=== PATIENT | male | born 1960 | race Caucasian/White ===

== ENCOUNTER 2017-02-24 12:14 | Emergency (ER) | payer OTHER ==
[~2017-02-24] VITALS: Ht 190.5 cm; Wt 108.0 kg
[~2017-02-24 12:14] MED LIST: CONTOUR1 XX; GLUCTAB PO; IBUP800 PO; NEUR600T PO; NOVOLOGMXP SQ; NOVORP2 SQ; RANI150 PO; ROBA750T3 PO; TRAM50TA PO
[2017-02-24 12:17] VITALS: BP 156/96; PULSE 99; RESP 16; TEMP 98.4; O2SAT 97
[2017-02-24 13:01] VITALS: BP 165/93; PULSE 91; RESP 18; TEMP 97.9; O2SAT 99
[2017-02-24] MEDS ORDERED: GLYB5TAB3 PO (13:05)
[2017-02-24] MEDS ORDERED: MELO7.5T27 PO (13:05)
[2017-02-24] MEDS ORDERED: METF1000 PO (13:05)
[2017-02-24] MEDS ORDERED: TAMS5CAP PO (13:05)
[2017-02-24] MEDS ORDERED: FENO2.5C PO (13:05)
[2017-02-24] MEDS ORDERED: LIDOCAINE HCL 1% 50 ML VIAL INFIL ONE (14:30)
[2017-02-24] MEDS ORDERED: KETOROLAC TROMETHAMINE 60 MG/2 ML (IM) VIAL IM ONE (15:00)
--- NOTE | 2017-02-24 15:04 | PD ---
HPI Chief Complaint: Skin Problem Time Seen by Provider: 14:05 Travel History International Travel<30 days: No Contact w/Intl Traveler<30days: No Traveled to known affect area: No History of Present Illness HPI 56-year-old male with a history of diabetes presents to the emergency room for evaluation of left fifth finger swelling, pain, and redness for the past 2 days. Patient states he leaves he had a splinter over the medial aspect of the PIP joint. He poked at it with a needle and squeezed it. The following day the redness, pain, and swelling worsened. Patient started noticing redness, and the fingers. Because he has history of diabetes, he was concerned for severe infection. Patient also complains of left shoulder pain is ongoing for 3 weeks. He doesn't think that they're related. States the pain feels like he slept on his shoulder wrong but it has persisted. It is worse with certain range of motion. 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 He denies paresthesias. PFSH Past Medical History Arthritis: Yes (RA) Cardiovascular Problems: Yes (htn, not taking meds) High Cholesterol: Yes Diabetes: Yes Patient Takes Glucophage: Yes Diminished Hearing: No Hypertension: Yes Neurologic: Yes (TINGLING AND NUMBNESS BILATERAL FEET) Tetanus Vaccination: Unknown Influenza Vaccination: No Past Surgical History Appendectomy: Yes Social History Alcohol Use: Yes (RARE) Tobacco Use: Yes (1/2 PPD) Substance Use: No Allergies-Medications (Allergen,Severity, Reaction): Coded Allergies: No Known Allergies (Verified Adverse Reaction, Unknown, 02/24/17) Uncoded Allergies: [facility] (Allergy, Unknown, 02/03/09) Reported Meds & Prescriptions Reported Meds & Active Scripts Active Keflex (Cephalexin) 500 Mg Capsule 500 Mg PO Q6H 10 Days Bactrim DS (Sulfamethoxazole-Trimethoprim) 800-160 Mg Tab 1 Tab PO BID Contour Blood Glucose Test Strip #100 (Blood Glucose Test Strips) Strp 1 Strip XX DIRECTED Reported Fenofibrate 50 Mg Cap 50 Mg PO DAILY Flomax (Tamsulosin HCl) 0.4 Mg Cap 0.4 Mg PO HS Glyburide 5 Mg Tab 10 Mg PO BID Take with meals at the same time each day Metformin (Metformin HCl) 1,000 Mg Tab 1,000 Mg PO BIDPC Meloxicam 7.5 Mg Tab 7.5 Mg PO DAILY Review of Systems Except as stated in HPI: all other systems reviewed are Neg Physical Exam Narrative GENERAL: Well-nourished, well-developed male in no acute distress. Afebrile. Ambulatory. SKIN: Focused skin assessment warm/dry. There is an indurated area in the left medial fifth finger which measures about2 cm in diameter. It is fluctuant but there is no pointing or drainage. There is a zone of inflammation around it but no lymphangitis. HEAD: Normocephalic. EYES: No scleral icterus. No injection or drainage. NECK: Supple, trachea midline. No JVD or lymphadenopathy. CARDIOVASCULAR: Regular rate and rhythm without murmurs, gallops, or rubs. RESPIRATORY: Breath sounds equal bilaterally. No accessory muscle use. MUSCULOSKELETAL: No cyanosis, or edema. 2+ radial pulse. Full range of motion of the left upper extremity. Tenderness to palpation of the left scapula. Pain is worsened with active range of motion. Radial, ulnar, and median nerves intact. Data Data Last Documented VS Vital Signs Date Time Temp Pulse Resp B/P (MAP) Pulse Ox O2 Delivery O2 Flow Rate FiO2 02/24/17 13:05 91 18 02/24/17 13:01 97.9 165/93 (117) 99 Room Air Orders Orders Lidocaine 1% Inj (50 Ml) (Xylocaine 1% I (02/24/17 14:30) Ketorolac Inj (Toradol Inj) (02/24/17 15:00) MDM Medical Decision Making Medical Screen Exam Complete: Yes Emergency Medical Condition: Yes Medical Record Reviewed: Yes Differential Diagnosis Tendinitis, spasm, strain, fracture, contusion, abscess, cellulitis Narrative Course 56-year-old male presents to the emergency room for evaluation and she is up her complaints. First complaint is abscess to the left fifth finger that he first noticed 2 days ago. States it started off as a foreign body/splinter that he poked and picked at and the following day symptoms significantly worsened. Patient is concerned because he has history of diabetes. Denies fever, chills, nausea, vomiting. Reports worsening pain, redness, and swelling. Physical exam reveals an abscess/hematoma to the right fifth medial finger over the PIP joint. It is externally tender to palpation but fluctuant. No lymphangitis. I suspect patient had a splinter that was exacerbated by squeezing/poking which caused a small hematoma that subsequently got infected. Abscess was drained, see procedure note for details. Patient discharged with Bactrim and Keflex. He was also given Toradol for his shoulder pain. Told to follow up with his primary care physician for outpatient MRI if symptoms persist. He understands and agrees to plan. Procedures Procedure Narrative INCISION AND DRAINAGE OF ABSCESS: The area was prepped and was sterilely draped. A subcutaneous wheal of percent lidocaine with a total number 3 mL was used to anesthetize the area properly. A number 11 scalpel was used to make a 1 cm incision across the area of the abscess. The abscess was drained, complex loculations were broken down, and irrigated with normal saline. Sterile dressing applied. Diagnosis Primary Impression: Left shoulder tendonitis Additional Impression: Abscess of left little finger Referrals: Primary Care Physician Additional Instructions: Rest and drink plenty of fluids. Take Bactrim and Keflex as directed, until gone. Take ibuprofen with food as directed, as needed for pain. Apply ice to the affected area for 20 minutes at a time, as needed for pain and swelling. Follow-up with a primary care physician. Return to the emergency room for worsening symptoms. Scripts Cephalexin (Keflex) 500 Mg Capsule 500 MG PO Q6H for Infection for 10 Days, #40 CAP 0 Refills Prov: Horacio Rachel MD 02/24/17 Sulfamethoxazole-Trimethoprim (Bactrim DS) 800-160 Mg Tab 1 TAB PO BID for Infection, #20 TAB 0 Refills Prov: Hroacio Rachel MD 02/24/17 Disposition: 01 DISCHARGE HOME Condition: Stable Mindi Estevez Feb 24, 2017 15:04
[2017-02-24] MEDS ORDERED: CEPH-460 PO (15:06)
[2017-02-24] MEDS ORDERED: BACT800T5 PO (15:06)
== END 2017-02-24 15:44 | disposition home or self-care (01) ==
LOC: NEPD 12:14
DX: M75.92 Shoulder lesion, unspecified, left shoulder (principal); L02.512 Cutaneous abscess of left hand; E11.9 Type 2 diabetes mellitus without complications; I10 Essential (primary) hypertension; E78.00 Pure hypercholesterolemia, unspecified; F17.200 Nicotine dependence, unspecified, uncomplicated; Z79.899 Other long term (current) drug therapy
CPT/HCPCS: 10060; 96372; 99284; J1885

== ENCOUNTER 2017-02-27 16:01 | Inpatient (IN) | payer OTHER ==
[~2017-02-27] VITALS: Ht 190.5 cm; Wt 108.0 kg
[~2017-02-27 16:01] MED LIST changes: +BACT800T5 PO; +CEPH-460 PO; +FENO2.5C PO; -GLUCTAB PO; +GLYB5TAB3 PO; -IBUP800 PO; +MELO7.5T27 PO; +METF1000 PO; -NEUR600T PO; -NOVOLOGMXP SQ; -NOVORP2 SQ; -RANI150 PO; -ROBA750T3 PO; +TAMS5CAP PO; -TRAM50TA PO
[2017-02-27 16:08] VITALS: PULSE 72; RESP 22; O2SAT 99
[2017-02-27] MEDS ORDERED: SODIUM CHLOR 0.9% 1000 ML INJ 1,000 ML IV SCH ×2 (16:28→17:26)
[2017-02-27] MEDS ORDERED: ONDANSETRON HCL 4 MG/2 ML VIAL IVP ONE (16:30)
[2017-02-27] MEDS ORDERED: MORPHINE SULFATE 4 MG/ML INJ IV PUSH ONE ×2 (16:30→19:15)
[2017-02-27] MEDS ORDERED: SODIUM CHLORIDE 0.9% FLUSH 10 ML FLUSH IV FLUSH PRN ×2 (16:30→21:30)
--- NOTE | 2017-02-27 16:34 | PD ---
HPI Chief Complaint: GI Complaint Time Seen by Provider: 16:18 Travel History International Travel<30 days: No Contact w/Intl Traveler<30days: No Traveled to known affect area: No History of Present Illness HPI 56-year-old male presents for evaluation of abdominal and chest pain. Symptoms started this morning. The pain is a sharp pain, constant, localized to the right upper quadrant/epigastrium and radiating to the right chest. Associated with nausea, multiple episodes of nonbloody emesis. Denies vomiting, diarrhea, constipation, flank pain, dysuria, fevers or chills. He reports that he has had pancreatitis twice in the past and this feels similar. 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 Reports a history of appendectomy. No other complaints at this time. PFSH Past Medical History Arthritis: Yes (RA) Cardiovascular Problems: Yes (htn, not taking meds) High Cholesterol: Yes Diabetes: Yes Diminished Hearing: No Hypertension: Yes Neurologic: Yes (TINGLING AND NUMBNESS BILATERAL FEET) Past Surgical History Appendectomy: Yes Social History Alcohol Use: Yes (RARE) Tobacco Use: Yes (1/2 PPD) Substance Use: No Allergies-Medications (Allergen,Severity, Reaction): Coded Allergies: No Known Allergies (Verified Adverse Reaction, Unknown, 02/27/17) Uncoded Allergies: [facility] (Allergy, Unknown, 02/03/09) Reported Meds & Prescriptions Reported Meds & Active Scripts Active Keflex (Cephalexin) 500 Mg Capsule 500 Mg PO Q6H 10 Days Bactrim DS (Sulfamethoxazole-Trimethoprim) 800-160 Mg Tab 1 Tab PO BID Contour Blood Glucose Test Strip #100 (Blood Glucose Test Strips) Strp 1 Strip XX DIRECTED Reported Fenofibrate 50 Mg Cap 50 Mg PO DAILY Flomax (Tamsulosin HCl) 0.4 Mg Cap 0.4 Mg PO HS Glyburide 5 Mg Tab 10 Mg PO BID Take with meals at the same time each day Metformin (Metformin HCl) 1,000 Mg Tab 1,000 Mg PO BIDPC Meloxicam 7.5 Mg Tab 7.5 Mg PO DAILY Review of Systems Except as stated in HPI: all other systems reviewed are Neg Physical Exam Narrative GENERAL: Well-nourished male in no acute distress SKIN: Warm and dry. HEAD: Atraumatic. Normocephalic. EYES: Pupils equal and round. No scleral icterus. No injection or drainage. ENT: No nasal bleeding or discharge. Mucous membranes pink and moist. NECK: Trachea midline. No JVD. CARDIOVASCULAR: Regular rate and rhythm. No murmur appreciated. RESPIRATORY: No accessory muscle use. Clear to auscultation. Breath sounds equal bilaterally. GASTROINTESTINAL: Abdomen soft, obese, tender to palpation in the epigastrium/ right upper quadrant without guarding, no CVA tenderness. MUSCULOSKELETAL: No obvious deformities. No clubbing. No cyanosis. No edema. NEUROLOGICAL: Awake and alert. No obvious cranial nerve deficits. Motor grossly within normal limits. Normal speech. PSYCHIATRIC: Appropriate mood and affect; insight and judgment normal. Data Data Last Documented VS Vital Signs Date Time Temp Pulse Resp B/P (MAP) Pulse Ox O2 Delivery O2 Flow Rate FiO2 02/27/17 19:12 93 16 141/79 (99) 99 Room Air 02/27/17 17:00 97.7 Orders Orders Complete Blood Count With Diff (02/27/17 16:28) Comprehensive Metabolic Panel (02/27/17 16:28) Lipase (02/27/17 16:28) Prothrombin Time / Inr (Pt) (02/27/17 16:28) Act Partial Throm Time (Ptt) (02/27/17 16:28) Urinalysis - C+S If Indicated (02/27/17 16:28) Ct Abd/Pel W Iv Contrast(Rout) (02/27/17 16:28) Iv Access Insert/Monitor (02/27/17 16:28) Ecg Monitoring (02/27/17 16:28) Oximetry (02/27/17 16:28) Morphine Inj (Morphine Inj) (02/27/17 16:30) Ondansetron Inj (Zofran Inj) (02/27/17 16:30) Sodium Chlor 0.9% 1000 Ml Inj (Ns 1000 M (02/27/17 16:28) Sodium Chloride 0.9% Flush (Ns Flush) (02/27/17 16:30) Electrocardiogram (02/27/17 16:28) Ckmb (Isoenzyme) Profile (02/27/17 16:28) Troponin I (02/27/17 16:28) Chest, Single Ap (02/27/17 ) CKMB (02/27/17 16:45) CKMB% (02/27/17 16:45) Insulin Human Regular Inj (Novolin R Inj (02/27/17 17:45) Dextrose 50% In Matt (Vial) Inj (D50w (Vi (02/27/17 17:30) Albuterol Concentrated Neb (Albuterol Co (02/27/17 17:30) Sodium Polysty Sulfate Liq (Kayexalate L (02/27/17 17:30) Sodium Chlor 0.9% 1000 Ml Inj (Ns 1000 M (02/27/17 17:26) Iodixanol 320 Inj (Rad Ct) (Visipaque 32 (02/27/17 18:35) Ondansetron Inj (Zofran Inj) (02/27/17 19:15) Morphine Inj (Morphine Inj) (02/27/17 19:15) Metoclopramide Inj (Reglan Inj) (02/27/17 20:15) Admit Order (Ed Use Only) (02/27/17 20:39) Labs Laboratory Tests Test 02/27/17 16:45 02/27/17 18:15 White Blood Count 8.7 TH/MM3 Red Blood Count 5.57 MIL/MM3 Hemoglobin 17.1 GM/DL Hematocrit 48.7 % Mean Corpuscular Volume 87.3 FL Mean Corpuscular Hemoglobin 30.7 PG Mean Corpuscular Hemoglobin Concent 35.1 % Red Cell Distribution Width 13.5 % Platelet Count 163 TH/MM3 Mean Platelet Volume 9.0 FL Neutrophils (%) (Auto) 87.8 % Lymphocytes (%) (Auto) 8.8 % Monocytes (%) (Auto) 3.0 % Eosinophils (%) (Auto) 0.1 % Basophils (%) (Auto) 0.3 % Neutrophils # (Auto) 7.6 TH/MM3 Lymphocytes # (Auto) 0.8 TH/MM3 Monocytes # (Auto) 0.3 TH/MM3 Eosinophils # (Auto) 0.0 TH/MM3 Basophils # (Auto) 0.0 TH/MM3 CBC Comment AUTO DIFF Differential Comment AUTO DIFF CONFIRMED Prothrombin Time 11.0 SEC Prothromb Time International Ratio 1.1 RATIO Activated Partial Thromboplast Time 28.5 SEC Blood Urea Nitrogen 28 MG/DL Creatinine 1.96 MG/DL Random Glucose 228 MG/DL Total Protein 8.8 GM/DL Albumin 4.8 GM/DL Calcium Level 9.6 MG/DL Alkaline Phosphatase 53 U/L Aspartate Amino Transf (AST/SGOT) 24 U/L Alanine Aminotransferase (ALT/SGPT) 46 U/L Total Bilirubin 0.7 MG/DL Sodium Level 135 MEQ/L Potassium Level 6.0 MEQ/L Chloride Level 103 MEQ/L Carbon Dioxide Level 23.2 MEQ/L Anion Gap 9 MEQ/L Estimat Glomerular Filtration Rate 36 ML/MIN Total Creatine Kinase 142 U/L Creatine Kinase MB 2.2 NG/ML Troponin I LESS THAN 0.02 NG/ML Lipase 336 U/L Urine Color YELLOW Urine Turbidity CLEAR Urine pH 6.5 Urine Specific [place] 1.017 Urine Protein 30 mg/dL Urine Glucose (UA) 1000 mg/dL Urine Ketones 10 mg/dL Urine Occult Blood NEG Urine Nitrite NEG Urine Bilirubin NEG Urine Urobilinogen LESS THAN 2.0 MG/DL Urine Leukocyte Esterase NEG Urine WBC 1 /hpf Urine Squamous Epithelial Cells <1 /hpf Urine Mucus FEW /lpf Microscopic Urinalysis Comment CULT NOT INDICATED MDM Medical Decision Making Medical Screen Exam Complete: Yes Emergency Medical Condition: Yes Medical Record Reviewed: Yes Differential Diagnosis Pancreatitis, aortic dissection, biliary colic, cholecystitis, mesenteric ischemia, colitis, atypical acute coronary syndrome, pericarditis, myocarditis Narrative Course The patient was placed on ECG monitoring pulse oximetry. Twelve-lead EKG obtained. Plan is for lab work, chest x-ray, CT abdomen and pelvis. He was given IV fluids, morphine, Zofran. EKG reveals sinus bradycardia with arrhythmia, rate 57. CMP reveals a potassium of 6.0 as well as an ANTONI with GFR of 36, random glucose 228, total protein 8.8. Additional liter of fluid boluses been initiated. He' ll be given Kayexalate, albuterol, insulin/dextrose to treat his hyperkalemia. He does note that he recently started Keflex and Bactrim for a finger infection and Bactrim could be the etiology for his hyperkalemia. CT abdomen and pelvis reveals CONCLUSION: 1. Hepatic steatosis. 2. Left-sided colonic diverticula. 3. Suspected 2 cm left renal cyst. 4. Prostatic enlargement causing an impression on the bladder floor. Upon reexamination the patient is vomiting again, Reglan has been ordered. The patient will be admitted for acute kidney injury, hyperkalemia, nausea and vomiting, abdominal pain. Diagnosis Primary Impression: Acute kidney injury Additional Impressions: Hyperkalemia Nausea and vomiting Abdominal pain Admitting Information Admitting Physician Requests: Admit Daljit Turner Feb 27, 2017 16:34
--- NOTE | 2017-02-27 16:57 | RADRPT ---
EXAM DATE/TIME: 02/27/2017 16:43 [facility] COMPARISON: No previous studies available for comparison. INDICATIONS : Chest pain MEDICAL HISTORY : Cardiovascular disease. SURGICAL HISTORY : None. ENCOUNTER: Initial ACUITY: 1 day PAIN SCORE: 4/10 LOCATION: chest FINDINGS: 2 AP erect portable views of the chest demonstrates the lungs to be symmetrically aerated without jamison dence of mass, infiltrate or effusion. The cardiomediastinal contours are unremarkable. Osseous str uctures are intact. CONCLUSION: No acute disease. Errol Juarez MD on February 27, 2017 at 16:55 Board Certified Radiologist. This report was verified electronically.
[2017-02-27 17:00] VITALS: BP 145/109; PULSE 73; RESP 20; TEMP 97.7; O2SAT 94
[2017-02-27 17:05] LABS: AUTOMATED NEUTROPHIL # 7.6 TH/MM3 (1.8-7.7); BASOPHIL % 0.3 % (0.0-2.0); EOSINOPHIL % 0.1 % (0.0-4.0); HEMATOCRIT 48.7 % (39.0-51.0); LYMPH % 8.8 % (9.0-44.0); LYMPHOCYTE # 0.8 TH/MM3 (1.0-4.8); MEAN CELL VOLUME 87.3 FL (80.0-100.0); MEAN CORPUSCULAR HEMOGLOBIN 30.7 PG (27.0-34.0); MEAN CORPUSCULAR HGB CONC 35.1 % (32.0-36.0); NEUT % 87.8 % (16.0-70.0); PLATELET COUNT 163 TH/MM3 (150-450); RED BLOOD COUNT 5.57 MIL/MM3 (4.50-5.90); RED CELL DISTRIBUTION WIDTH 13.5 % (11.6-17.2); WHITE BLOOD COUNT 8.7 TH/MM3 (4.0-11.0)
[2017-02-27 17:16] LABS: APTT (PATIENT) 28.5 SEC (24.3-30.1); INTERNATIONAL NORMALIZED RATIO 1.1 RATIO
[2017-02-27 17:19] LABS: ALT (GPT) 46 U/L (12-78); ANION GAP 9 MEQ/L (5-15); AST (GOT) 24 U/L (15-37); BICARBONATE 23.2 MEQ/L (21.0-32.0); BLOOD UREA NITROGEN 28 MG/DL (7-18); CHLORIDE 103 MEQ/L (98-107); GLOMERULAR FILTRATION RATE 36 ML/MIN (>89); HEMO FLAGS AUTO DIFF; SODIUM (NA) 135 MEQ/L (136-145)
[2017-02-27 17:23] LABS: ALKALINE PHOSPHATASE 53 U/L (45-117); CREATINE KINASE 142 U/L (39-308); TOTAL BILIRUBIN ADULT 0.7 MG/DL (0.2-1.0)
[2017-02-27] MEDS ORDERED: RESP: ALBUTEROL CONC 2.5 MG/0.5 ML NEB INH ONE (17:30)
[2017-02-27] MEDS ORDERED: DEXTROSE 50% IN WATER 50 ML VIAL(D50) IV PUSH ONE (17:30)
[2017-02-27] MEDS ORDERED: SODIUM POLYSTYRENE SULFONATE SUSP 15 GM/60 ML CUP PO ONE (17:30)
[2017-02-27 17:35] LABS: CKMB 2.2 NG/ML (0.5-3.6)
[2017-02-27] MEDS ORDERED: INSULIN HUMAN REGULAR 1,000 UNITS/10 ML VIAL IV PUSH ONE (17:45)
[2017-02-27 17:55] VITALS: BP 150/96; PULSE 93; RESP 21; O2SAT 98
[2017-02-27 18:10] LABS: SCAN/DIFF AUTO DIFF CONFIRMED
[2017-02-27] MEDS ORDERED: IODIXANOL 320 MG/ML 10 ML VIAL (for Rad CT) IVCONTRAST ONE (18:35)
[2017-02-27 18:53] LABS: BLOOD, URINE NEG (NEG); COMMENT (UR) CULT NOT INDICATED; CULTURE IF INDICATED CULT NOT INDICATED; GLUCOSE,URINE 1000 mg/dL (NEG); KETONE, URINE 10 mg/dL (NEG); MUCUS URINE FEW /lpf (OCC); NITRITE,URINE NEG (NEG); PH, URINE 6.5 (5.0-8.5); SQUAMOUS EPITHELIAL CELL URINE <1 /hpf (0-5); URINE COLOR YELLOW (YELLW/STRAW)
[2017-02-27 19:12] VITALS: BP 141/79; PULSE 93; RESP 16; O2SAT 99
[2017-02-27] MEDS ORDERED: ONDANSETRON HCL 4 MG/2 ML VIAL IV PUSH ONE (19:15)
--- NOTE | 2017-02-27 20:09 | RADRPT ---
EXAM DATE/TIME: 02/27/2017 18:32 [facility] COMPARISON: CT ABDOMEN & PELVIS W CONTRAST, February 20, 2010, 13:43. INDICATIONS : Epigastric pain with nausea and vomiting. IV CONTRAST: 50 cc Visipaque (iodixanol) IV ORAL CONTRAST: No oral contrast ingested. RADIATION DOSE: 14.85 CTDIvol (mGy) MEDICAL HISTORY : Diabetes mellitus type 1. Hypertension. Pancreatitis. SURGICAL HISTORY : Appendectomy. ENCOUNTER: Initial ACUITY: 1 day PAIN SCALE: 10/10 LOCATION: Upper quadrant abdomen TECHNIQUE: Volumetric scanning of the abdomen and pelvis was performed. Using automated exposure control and adjustment of the mA and/or kV according to patient size, radiation dose was kept as low as reasonably achievable to obtain optimal diagnostic quality images. DICOM format image data is av ailable electronically for review and comparison. FINDINGS: There is decreased attenuation in the liver. No focal hepatic masses are seen. The spl een, pancreas and adrenal glands are normal. There is a 2 cm low density mass seen at the posterior lateral left mid kidney likely related to a cyst. There is some minimal fullness of the renal pelvis regions. The calices are not distended. The ureters appear normal. There are scattered colonic di verticula particularly in the descending colon and sigmoid region. Significant surrounding inflammato ry change is not seen. The prostate appears enlarged. It impresses upon the bladder floor. The ant erior abdominal wall appears intact. There is prominent fat extending into the inguinal canals bilat erally. No bowel is seen in these regions. There is some degenerative change at the lower lumbar sp ine. The lung bases are grossly clear. Coronary artery calcifications are present. CONCLUSION: 1. Hepatic steatosis. 2. Left-sided colonic diverticula. 3. Suspected 2 cm left renal cyst. 4. Prostatic enlargement causing an impression on the bladder floor. Yvan Fregoso MD on February 27, 2017 at 19:56 Board Certified Radiologist. This report was verified electronically.
[2017-02-27] MEDS ORDERED: METOCLOPRAMIDE HCL 10 MG/2 ML VIAL IV PUSH ONE (20:15)
--- NOTE | 2017-02-27 21:04 | HHI.HP ---
[facility] Service Family Medicine Primary Care Physician Yvan Vieyra MD Admission Diagnosis jelena, hyperkalemia, abdominal pain, nausea and vomiting Diagnoses: International Travel<30 Days: No Contact w/Intl Traveler<30days: No Known Affected Area: No History of Present Illness 56-year-old male with history of diabetes and pancreatitis 2 presents with a one-day history of severe abdominal pain with associated nausea and vomiting. Patient states his pain initially felt like heartburn early this morning. He then developed severe 10 out of 10 pain located in the middle of his abdomen. Nonradiating. He has had associated nausea and vomiting he believes up to 30 times today. His pain never really has gone away until after coming to the hospital and getting pain medication and Reglan. The patient has had pancreatitis in the past, both times being treated at [facility]. He states his pain was similar to that occasion and he thought he had pancreatitis. I warm shower helped somewhat with the pain, however not totally. He has not had anything to eat all day secondary to the pain. However , at the time of this interview at 8 PM after receiving medications, the patient is now hungry and would like to eat. He was seen in the emergency room 2-3 days ago with an abscess which was I&D. He was started on Keflex and Bactrim. He was taking this medication as prescribed. Patient has reported history of daily marijuana use. Patient states it helps with his anxiety. He denies fever. He has had chills. He denies any diarrhea or constipation. Review of Systems Constitutional: COMPLAINS OF: Chills, DENIES: Fever Eyes: DENIES: Blurred vision, Diplopia Respiratory: COMPLAINS OF: Shortness of breath, DENIES: Cough, Sputum production Cardiovascular: COMPLAINS OF: Chest pain Gastrointestinal: COMPLAINS OF: Abdominal pain, Nausea, Vomiting, DENIES: Black stools, Bloody stools, Diarrhea Genitourinary: DENIES: Urgency, Dysuria Neurologic: DENIES: Abnormal gait, Headache Past Family Social History Past Medical History Diabetic neuropathy- can't feel feet very well Diabetes Hyperlipidemia Past Surgical History Knee surgery Appendix Reported Medications Reported Meds & Active Scripts Active Keflex (Cephalexin) 500 Mg Capsule 500 Mg PO Q6H 10 Days Bactrim DS (Sulfamethoxazole-Trimethoprim) 800-160 Mg Tab 1 Tab PO BID Contour Blood Glucose Test Strip #100 (Blood Glucose Test Strips) Strp 1 Strip XX DIRECTED Reported Fenofibrate 50 Mg Cap 50 Mg PO DAILY Flomax (Tamsulosin HCl) 0.4 Mg Cap 0.4 Mg PO HS Glyburide 5 Mg Tab 10 Mg PO BID Take with meals at the same time each day Metformin (Metformin HCl) 1,000 Mg Tab 1,000 Mg PO BIDPC Meloxicam 7.5 Mg Tab 7.5 Mg PO DAILY Allergies: Coded Allergies: No Known Allergies (Verified Adverse Reaction, Unknown, 02/27/17) Uncoded Allergies: [facility] (Allergy, Unknown, 02/03/09) Active Ordered Medications Active Medications Albuterol Sulfate (Albuterol Concentrated Neb) 10 mg ONCE ONCE INH Last administered on 02/27/17 17:42; Admin Dose 10 MG; Start 02/27/17 at 17:30; Stop 02/27/17 at 17:31; Status DC Dextrose (D50w (Vial) Inj) 50 ml ONCE ONCE IV PUSH Last administered on 17:38; Admin Dose 50 ML; Start 02/27/17 at 17:30; Stop 02/27/17 at 17:31 ; Status DC Insulin Human Regular (NovoLIN R INJ) 10 units ONCE ONCE IV PUSH Last administered on 02/27/17 17:38; Admin Dose 10 UNITS; Start 02/27/17 at 17:45 ; Stop 02/27/17 at 17:46; Status DC Iodixanol (VISIPAQUE 320 INJ (Rad CT)) 50 ml STK-MED ONCE IVCONTRAST Last administered on 02/27/17 18:35; Admin Dose 50 ML; Start 02/27/17 at 18:35; Stop 02/27/17 at 18:36; Status DC Metoclopramide HCl (Reglan Inj) 10 mg ONCE ONCE IV PUSH Last administered on 20:25; Admin Dose 10 MG; Start 02/27/17 at 20:15; Stop 02/27/17 at 20 :16; Status DC Morphine Sulfate (Morphine Inj) 4 mg ONCE ONCE IV PUSH Last administered on 16:42; Admin Dose 4 MG; Start 02/27/17 at 16:30; Stop 02/27/17 at 16: 32; Status DC Morphine Sulfate (Morphine Inj) 4 mg ONCE ONCE IV PUSH Last administered on 19:11; Admin Dose 4 MG; Start 02/27/17 at 19:15; Stop 02/27/17 at 19: 16; Status DC Ondansetron HCl (Zofran Inj) 4 mg ONCE ONCE IV PUSH Last administered on 19:12; Admin Dose 4 MG; Start 02/27/17 at 19:15; Stop 02/27/17 at 19:16; Status DC Ondansetron HCl (Zofran Inj) 4 mg ONCE ONCE IVP Last administered on 16:42; Admin Dose 4 MG; Start 02/27/17 at 16:30; Stop 02/27/17 at 16:32; Status DC Sodium Polystyrene Sulfonate (Kayexalate Liq) 15 gm ONCE ONCE PO Last administered on 02/27/17 17:38; Admin Dose 15 GM; Start 02/27/17 at 17:30; Stop 02/27/17 at 17:31; Status DC Sodium Chloride 1,000 ml @ 1,000 mls/hr Q1H IV Last administered on 02/27/17 16:41; Admin Dose 1,000 MLS/HR; Start 02/27/17 at 16:28; Stop 02/27/17 at 17: 27; Status DC Sodium Chloride 1,000 ml @ 1,000 mls/hr Q1H IV Last administered on 02/27/17 17:39; Admin Dose 1,000 MLS/HR; Start 02/27/17 at 17:26; Stop 02/27/17 at 18: 25; Status DC Sodium Chloride (NS Flush) 2 ml UNSCH PRN IV FLUSH; Start 02/27/17 at 16:30 Family History Adopted Social History Smokes marijuana daily. No alcohol, previously drank. Does not smoke cigarettes now. Previously smoked 1/2 ppd 10-20 years; quit 3 years ago. Rubs smokeless tobacco. Physical Exam Vital Signs Vital Signs Date Time Temp Pulse Resp B/P (MAP) Pulse Ox O2 Delivery O2 Flow Rate FiO2 02/27/17 19:12 93 16 141/79 (99) 99 Room Air 02/27/17 19:12 18 02/27/17 17:55 93 21 150/96 (114) 98 Room Air 02/27/17 17:07 20 02/27/17 17:00 97.7 73 20 145/109 (121) 94 Room Air 02/27/17 16:08 72 22 99 Physical Exam GENERAL: Pleasant male lying comfortably in bed. NAD. Protuberant abdomen SKIN: Left 5th finger with well healed prior incision (3x3mm) and improved surrounding erythema HEAD: Atraumatic. Normocephalic. No temporal or scalp tenderness. EYES: Pupils equal round and reactive. Extraocular motions intact. No scleral icterus. No injection or drainage. ENT: Nose without bleeding, purulent drainage or septal hematoma. Throat without erythema, tonsillar hypertrophy or exudate. Uvula midline. Airway patent. NECK: Trachea midline. No JVD or lymphadenopathy. Supple, nontender, no meningeal signs. CARDIOVASCULAR: Regular rate and rhythm without murmurs, gallops, or rubs. RESPIRATORY: Clear to auscultation. Breath sounds equal bilaterally. No wheezes , rales, or rhonchi. GASTROINTESTINAL: Abdomen protuberant, non-tender. No hepato-splenomegaly, or palpable masses. No guarding. MUSCULOSKELETAL: Extremities without clubbing, cyanosis, or edema. No joint tenderness, effusion, or edema noted. No calf tenderness. Negative Homans sign bilaterally. NEUROLOGICAL: Awake and alert. Cranial nerves II through XII intact. Motor grossly within normal limits. Severe sensory loss in the feet bilaterally. Five out of 5 muscle strength in all muscle groups. Normal speech. Laboratory Laboratory Tests Test 02/27/17 16:45 02/27/17 18:15 White Blood Count 8.7 Red Blood Count 5.57 Hemoglobin 17.1 Hematocrit 48.7 Mean Corpuscular Volume 87.3 Mean Corpuscular Hemoglobin 30.7 Mean Corpuscular Hemoglobin Concent 35.1 Red Cell Distribution Width 13.5 Platelet Count 163 Mean Platelet Volume 9.0 Neutrophils (%) (Auto) 87.8 Lymphocytes (%) (Auto) 8.8 Monocytes (%) (Auto) 3.0 Eosinophils (%) (Auto) 0.1 Basophils (%) (Auto) 0.3 Neutrophils # (Auto) 7.6 Lymphocytes # (Auto) 0.8 Monocytes # (Auto) 0.3 Eosinophils # (Auto) 0.0 Basophils # (Auto) 0.0 CBC Comment AUTO DIFF Differential Comment AUTO DIFF CONFIRMED Prothrombin Time 11.0 Prothromb Time International Ratio 1.1 Activated Partial Thromboplast Time 28.5 Blood Urea Nitrogen 28 Creatinine 1.96 Random Glucose 228 Total Protein 8.8 Albumin 4.8 Calcium Level 9.6 Alkaline Phosphatase 53 Aspartate Amino Transf (AST/SGOT) 24 Alanine Aminotransferase (ALT/SGPT) 46 Total Bilirubin 0.7 Sodium Level 135 Potassium Level 6.0 Chloride Level 103 Carbon Dioxide Level 23.2 Anion Gap 9 Estimat Glomerular Filtration Rate 36 Total Creatine Kinase 142 Creatine Kinase MB 2.2 Troponin I LESS THAN 0.02 Lipase 336 Urine Color YELLOW Urine Turbidity CLEAR Urine pH 6.5 Urine Specific [place] 1.017 Urine Protein 30 Urine Glucose (UA) 1000 Urine Ketones 10 Urine Occult Blood NEG Urine Nitrite NEG Urine Bilirubin NEG Urine Urobilinogen LESS THAN 2.0 Urine Leukocyte Esterase NEG Urine WBC 1 Urine Squamous Epithelial Cells <1 Urine Mucus FEW Microscopic Urinalysis Comment CULT NOT INDICATED Result Diagram: 02/27/17 1645 02/27/17 1645 Imaging Last Impressions Chest X-Ray 02/27/17 0000 Signed Impressions: Service Date/Time: January 16:43 - CONCLUSION: No acute disease. MD [facility] VTE Risk Assessment Caprini VTE Risk Assessment: Mod/High Risk (score >= 2) Caprini Risk Assessment Model Point Value = 1 Point Value = 2 Point Value = 3 Point Value = 5 Age 41-60 Minor surgery BMI > 25 kg/m2 Swollen legs Varicose veins or History of unexplained or recurrent spontaneous Oral contraceptives or hormone replacement Sepsis (< 1 month) Serious lung disease, including pneumonia (< 1 month) Abnormal pulmonary function Acute myocardial infarction Congestive heart failure (< 1 month) History of inflammatory bowel disease Medical patient at bed rest Age 61-74 Arthroscopic surgery Major open surgery (> 45 min) Laparoscopic surgery (> 45 min) Malignancy Confined to bed (> 72 hours) Immobilizing plaster cast Central venous access Age >= 75 History of VTE Family history of VTE Factor V Leiden Prothrombin [id number] Lupus anticoagulant Anticardiolipin antibodies Elevated serum homocysteine Heparin-induced thrombocytopenia Other congenital or acquired thrombophilia Stroke (< 1 month) Elective arthroplasty Hip, pelvis, or leg fracture Acute spinal cord injury (< 1 month) Prophylaxis Regimen Total Risk Factor Score Risk Level Prophylaxis Regimen 0-1 Low Early ambulation 2 Moderate Order ONE of the following: *Sequential Compression Device (SCD) *Heparin 5000 units SQ BID 3-4 Higher Order ONE of the following medications: *Heparin 5000 units SQ TID *Enoxaparin/Lovenox 40 mg SQ daily (WT < 150 kg, CrCl > 30 mL/min) *Enoxaparin/Lovenox 30 mg SQ daily (WT < 150 kg, CrCl > 10-29 mL/min) *Enoxaparin/Lovenox 30 mg SQ BID (WT < 150 kg, CrCl > 30 mL/min) AND/OR *Sequential Compression Device (SCD) 5 or more Highest Order ONE of the following medications: *Heparin 5000 units SQ TID (Preferred with Epidurals) *Enoxaparin/Lovenox 40 mg SQ daily (WT < 150 kg, CrCl > 30 mL/min) *Enoxaparin/Lovenox 30 mg SQ daily (WT < 150 kg, CrCl > 10-29 mL/min) *Enoxaparin/Lovenox 30 mg SQ BID (WT < 150 kg, CrCl > 30 mL/min) AND *Sequential Compression Device (SCD) Assessment and Plan Assessment and Plan 56-year-old male presents with a one-day history of severe abdominal pain, found to have elevated potassium, acute kidney injury, and intractable nausea and vomiting. Patient will be admitted for workup Code Status Full Problem List: (1) Abdominal pain ICD Codes: R10.9 - Unspecified abdominal pain Status: Acute Plan: DDX includes gastroenteritis vs gastroparesis vs marijuana hyperemisis vs other. CT reviewed in the EMR Continue Reglan and morphine Gastric emptying study Consider GI referral if no improvement Consider Ultrasound (2) Diabetes ICD Codes: E11.9 - Type 2 diabetes mellitus without complications Status: Chronic Plan: Holding PO meds for now SSI while inpatient. Currently NPO. Consider long acting insulin pending bedside sugars HgA1c (3) Acute kidney injury ICD Codes: N17.9 - Acute kidney failure, unspecified Status: Acute Plan: Likely prerenal from dehydration Fluids as below (4) Nausea and vomiting ICD Codes: R11.2 - Nausea with vomiting, unspecified Status: Acute Plan: DDX includes gastroparesis vs marijuana hyperemesis vs other Gastric emptying study Improvement with reglan, to continue Counseled to stop marijuana IV fluids as below (5) Hyperkalemia ICD Codes: E87.5 - Hyperkalemia Status: Acute Plan: Slightly elevated. EKG reviewed. Expect improvement with IV fluids and insulin Repeat labs in AM. (6) Marijuana abuse ICD Codes: F12.10 - Cannabis abuse, uncomplicated Status: Chronic Plan: possibly contributing to N/V and pain Counseled to stop (7) FEN/PPX Status: Acute Plan: Fluids: NS 180 ml/hr Electrolytes: monitor and replace as needed Nutrition: NPO while continues to have pain, although he is starting to have an appetite and pain is improving PPX: heparin q8 Physician Certification 2 Midnight Certification Type: Admission for Inpatient Services Order for Inpatient Services The services are ordered in accordance with Medicare regulations or non- Medicare payer requirements, as applicable. In the case of services not specified as inpatient-only, they are appropriately provided as inpatient services in accordance with the 2-midnight benchmark. Estimated LOS (days): 2 days is the estimated time the patient will need to remain in the hospital, assuming treatment plan goals are met and no additional complications. Post-Hospital Plan: Home Problem Qualifiers (1) Abdominal pain: Qualified Codes: R10.9 - Unspecified abdominal pain (2) Diabetes: Qualified Codes: E11.42 - Type 2 diabetes mellitus with diabetic polyneuropathy (3) Nausea and vomiting: Qualified Codes: R11.2 - Nausea with vomiting, unspecified Phillip Barbour MD, R3 Feb 27, 2017 21:04
[2017-02-27] MEDS: SODIUM CHLOR 0.9% 1000 ML INJ 1,000 ML IV SCH (21:19)
[2017-02-27] MEDS ORDERED: SENNOSIDES 8.6 MG TAB PO PRN (21:30)
[2017-02-27] MEDS ORDERED: DEXTROSE 50% IN WATER 50 ML VIAL(D50) IV PUSH PRN (21:30)
[2017-02-27] MEDS ORDERED: MAGNESIUM HYDROXIDE SUSP 30 ML CUP PO PRN (21:30)
[2017-02-27] MEDS ORDERED: BISACODYL 10 MG SUPP RECTAL PRN (21:30)
[2017-02-27] MEDS ORDERED: NALOXONE HCL 0.4 MG/ML AMP IV PUSH PRN (21:30)
[2017-02-27] MEDS ORDERED: METOCLOPRAMIDE HCL 10 MG/2 ML VIAL IV PUSH PRN (21:30)
[2017-02-27] MEDS ORDERED: GLUCAGON 1 MG/ML VIAL OTHER PRN (21:30)
[2017-02-27] MEDS ORDERED: LACTULOSE SYRUP 20 GM/30 ML CUP PO PRN (21:30)
[2017-02-27] MEDS ORDERED: TEMAZEPAM 15 MG CAP PO PRN (21:30)
[2017-02-27] MEDS ORDERED: PROMETHAZINE INJ 25 MG/ML VIAL IM ONE (22:00)
[2017-02-27] MEDS: HEPARIN SODIUM - SQ 10,000 UNITS/ML VIAL SQ SCH (22:00)
[2017-02-27 22:52] VITALS: BP 147/94; PULSE 70; RESP 16; O2SAT 95
[2017-02-27 23:56] VITALS: BP 135/71; PULSE 71; RESP 20; TEMP 98.5; O2SAT 95
[2017-02-28] MEDS: MORPHINE SULFATE 4 MG/ML INJ IV PUSH PRN ×7 (00:13→21:03)
[2017-02-28] MEDS: SODIUM CHLOR 0.9% 1000 ML INJ 1,000 ML IV SCH ×5 (03:22→23:28)
[2017-02-28] MEDS: HEPARIN SODIUM - SQ 10,000 UNITS/ML VIAL SQ SCH ×3 (04:44→20:34)
[2017-02-28] MEDS: INSULIN ASPART SUPPLEMENTAL SCALE SQ SCH ×4 (07:21→21:00)
[2017-02-28] MEDS: SODIUM CHLORIDE 0.9% FLUSH 10 ML FLUSH IV FLUSH SCH ×2 (07:52→20:32)
[2017-02-28] MEDS: DOCUSATE SODIUM 50 MG/SENNA 8.6 MG TAB PO SCH ×2 (07:53→20:32)
[2017-02-28 08:00] VITALS: BP 137/84; PULSE 78; RESP 18; TEMP 98.7; O2SAT 94
[2017-02-28 08:57] LABS: AUTOMATED NEUTROPHIL # 7.8 TH/MM3 (1.8-7.7); BASOPHIL % 0.1 % (0.0-2.0); EOSINOPHIL % 0.1 % (0.0-4.0); HEMO FLAGS DIFF FINAL; LYMPH % 12.9 % (9.0-44.0); LYMPHOCYTE # 1.3 TH/MM3 (1.0-4.8); MEAN CELL VOLUME 86.6 FL (80.0-100.0); MEAN CORPUSCULAR HEMOGLOBIN 30.3 PG (27.0-34.0); MONO % 9.4 % (0.0-8.0); NEUT % 77.5 % (16.0-70.0); PLATELET COUNT 160 TH/MM3 (150-450); RED BLOOD COUNT 4.96 MIL/MM3 (4.50-5.90); RED CELL DISTRIBUTION WIDTH 13.5 % (11.6-17.2); WHITE BLOOD COUNT 10.1 TH/MM3 (4.0-11.0)
--- NOTE | 2017-02-28 09:21 | HHI.HP ---
[facility] Service Family Medicine Primary Care Physician Yvan Vieyra MD Admission Diagnosis jelena, hyperkalemia, abdominal pain, nausea and vomiting Diagnoses: (1) Abdominal pain Diagnosis: Principal (2) Diabetes Diagnosis: Principal (3) Acute kidney injury Diagnosis: Principal (4) Nausea and vomiting Diagnosis: Principal (5) Hyperkalemia Diagnosis: Principal (6) Marijuana abuse Diagnosis: Principal (7) FEN/PPX Diagnosis: Principal International Travel<30 Days: No Contact w/Intl Traveler<30days: No Known Affected Area: No History of Present Illness Mr Dickerson is a 56-year-old male with history of diabetes and pancreatitis 2 ( last time one year ago) who presents with a one-day history of severe abdominal pain with associated nausea and vomiting. Patient states his pain initially felt like heartburn early in the morning. He then developed severe 10 out of 10 pain located in the middle of his abdomen. Nonradiating. He has had associated nausea and vomiting he believes up to 30 times . His pain never really was gone until after coming to the hospital and getting pain medication and Reglan. The patient has had pancreatitis in the past, both times being treated at [facility]. He states his pain was similar to that occasion and he thought he had pancreatitis. Interestingly, warm showers helped somewhat with the pain, however not totally and he would get worse when he stepped out of the shower. He had not had anything to eat all day secondary to the pain. However, last night after receiving medications, the patient was hungry and wanted to eat. He was seen in the emergency room 2-3 days prior with an abscess which was I& D. He was started on Keflex and Bactrim. He was taking this medication as prescribed. Patient has reported history of daily marijuana use. Patient states it helps with his anxiety. He denies fever. He has had chills. He denies any diarrhea or constipation. This am he is scheduled for a study to evaluate for gastroparesis. He is not vomiting this am. We also discussed his pain and he has been taking his morphine regularly. It was explained that sometimes heavy marijuana use can lead to vomiting "out of the blue". He states he smokes daily and denies other drug use. He was informed that being helped by a hot shower goes along with vomiting from marijuana. He states he believes this is "just like my prior pancreatitis". Review of Systems Other Constitutional: COMPLAINS OF: Chills, DENIES: Fever Eyes: DENIES: Blurred vision, Diplopia Respiratory: COMPLAINS OF: Shortness of breath, DENIES: Cough, Sputum production Cardiovascular: COMPLAINS OF: Chest pain Gastrointestinal: COMPLAINS OF: Abdominal pain, Nausea, Vomiting, DENIES: Black stools, Bloody stools, Diarrhea Genitourinary: DENIES: Urgency, Dysuria Neurologic: DENIES: Abnormal gait, Headache Past Family Social History Past Medical History Diabetic neuropathy- can't feel feet very well Diabetes Hyperlipidemia B12 levels low in 2010. denies taking any B12 Past Surgical History Knee surgery Appendix Allergies: Coded Allergies: No Known Allergies (Verified Adverse Reaction, Unknown, 02/27/17) Uncoded Allergies: [facility] (Allergy, Unknown, 02/03/09) Family History Adopted Social History Smokes marijuana daily. No alcohol, previously drank. Does not smoke cigarettes now. Previously smoked 1/2 ppd 10-20 years; quit 3 years ago. Rubs smokeless tobacco. Physical Exam Vital Signs Vital Signs Date Time Temp Pulse Resp B/P (MAP) Pulse Ox O2 Delivery O2 Flow Rate FiO2 02/28/17 08:00 98.7 78 18 137/84 (101) 94 02/27/17 23:56 98.5 71 20 135/71 (92) 95 02/27/17 22:52 70 16 147/94 (111) 95 Room Air 02/27/17 19:12 93 16 141/79 (99) 99 Room Air 02/27/17 19:12 18 02/27/17 17:55 93 21 150/96 (114) 98 Room Air 02/27/17 17:07 20 02/27/17 17:00 97.7 73 20 145/109 (121) 94 Room Air 02/27/17 16:08 72 22 99 Physical Exam GENERAL: Pleasant male lying comfortably in bed. NAD. Protuberant abdomen SKIN: Left 5th finger with well healed prior incision (3x3mm) and improved surrounding erythema HEAD: Atraumatic. Normocephalic. EYES: Pupils equal round and reactive. Extraocular motions intact. No scleral icterus. No injection or drainage. ENT: Nose without bleeding, purulent drainage or septal hematoma. Uvula midline. Airway patent. NECK: Trachea midline. No JVD or lymphadenopathy. Supple, nontender, no meningeal signs. CARDIOVASCULAR: Regular rate and rhythm without murmurs, gallops, or rubs. RESPIRATORY: Clear to auscultation. Breath sounds equal bilaterally. No wheezes , rales, or rhonchi. GASTROINTESTINAL: Abdomen protuberant, non-tender. No hepato-splenomegaly, or palpable masses. No guarding. MUSCULOSKELETAL: Extremities without clubbing, cyanosis, or edema. No joint tenderness, effusion, or edema noted. No calf tenderness. Negative Homans sign bilaterally. NEUROLOGICAL: Awake and alert. Cranial nerves II through XII intact. Motor grossly within normal limits. Severe sensory loss in the feet bilaterally. Five out of 5 muscle strength in all muscle groups. Normal speech. Laboratory Laboratory Tests Test 02/27/17 16:45 02/27/17 18:15 02/28/17 07:52 White Blood Count 8.7 10.1 Red Blood Count 5.57 4.96 Hemoglobin 17.1 15.0 Hematocrit 48.7 43.0 Mean Corpuscular Volume 87.3 86.6 Mean Corpuscular Hemoglobin 30.7 30.3 Mean Corpuscular Hemoglobin Concent 35.1 35.0 Red Cell Distribution Width 13.5 13.5 Platelet Count 163 160 Mean Platelet Volume 9.0 8.8 Neutrophils (%) (Auto) 87.8 77.5 Lymphocytes (%) (Auto) 8.8 12.9 Monocytes (%) (Auto) 3.0 9.4 Eosinophils (%) (Auto) 0.1 0.1 Basophils (%) (Auto) 0.3 0.1 Neutrophils # (Auto) 7.6 7.8 Lymphocytes # (Auto) 0.8 1.3 Monocytes # (Auto) 0.3 1.0 Eosinophils # (Auto) 0.0 0.0 Basophils # (Auto) 0.0 0.0 CBC Comment AUTO DIFF DIFF FINAL Differential Comment AUTO DIFF CONFIRMED Prothrombin Time 11.0 Prothromb Time International Ratio 1.1 Activated Partial Thromboplast Time 28.5 Blood Urea Nitrogen 28 Creatinine 1.96 Random Glucose 228 Total Protein 8.8 Albumin 4.8 Calcium Level 9.6 Alkaline Phosphatase 53 Aspartate Amino Transf (AST/SGOT) 24 Alanine Aminotransferase (ALT/SGPT) 46 Total Bilirubin 0.7 Sodium Level 135 Potassium Level 6.0 Chloride Level 103 Carbon Dioxide Level 23.2 Anion Gap 9 Estimat Glomerular Filtration Rate 36 Total Creatine Kinase 142 Creatine Kinase MB 2.2 Troponin I LESS THAN 0.02 Lipase 336 Urine Color YELLOW Urine Turbidity CLEAR Urine pH 6.5 Urine Specific Left Hand 1.017 Urine Protein 30 Urine Glucose (UA) 1000 Urine Ketones 10 Urine Occult Blood NEG Urine Nitrite NEG Urine Bilirubin NEG Urine Urobilinogen LESS THAN 2.0 Urine Leukocyte Esterase NEG Urine WBC 1 Urine Squamous Epithelial Cells <1 Urine Mucus FEW Microscopic Urinalysis Comment CULT NOT INDICATED Result Diagram: 02/28/17 0752 02/27/17 1645 Imaging Last Impressions Chest X-Ray 02/27/17 0000 Signed Impressions: Service Date/Time: , February 27, 2017 16:43 - CONCLUSION: No acute disease. MD [facility] VTE Risk Assessment Hima VTE Risk Assessment: Mod/High Risk (score >= 2) Caprini Risk Assessment Model Point Value = 1 Point Value = 2 Point Value = 3 Point Value = 5 Age 41-60 Minor surgery BMI > 25 kg/m2 Swollen legs Varicose veins or History of unexplained or recurrent spontaneous Oral contraceptives or hormone replacement Sepsis (< 1 month) Serious lung disease, including pneumonia (< 1 month) Abnormal pulmonary function Acute myocardial infarction Congestive heart failure (< 1 month) History of inflammatory bowel disease Medical patient at bed rest Age 61-74 Arthroscopic surgery Major open surgery (> 45 min) Laparoscopic surgery (> 45 min) Malignancy Confined to bed (> 72 hours) Immobilizing plaster cast Central venous access Age >= 75 History of VTE Family history of VTE Factor V Leiden Prothrombin [id number] Lupus anticoagulant Anticardiolipin antibodies Elevated serum homocysteine Heparin-induced thrombocytopenia Other congenital or acquired thrombophilia Stroke (< 1 month) Elective arthroplasty Hip, pelvis, or leg fracture Acute spinal cord injury (< 1 month) Prophylaxis Regimen Total Risk Factor Score Risk Level Prophylaxis Regimen 0-1 Low Early ambulation 2 Moderate Order ONE of the following: *Sequential Compression Device (SCD) *Heparin 5000 units SQ BID 3-4 Higher Order ONE of the following medications: *Heparin 5000 units SQ TID *Enoxaparin/Lovenox 40 mg SQ daily (WT < 150 kg, CrCl > 30 mL/min) *Enoxaparin/Lovenox 30 mg SQ daily (WT < 150 kg, CrCl > 10-29 mL/min) *Enoxaparin/Lovenox 30 mg SQ BID (WT < 150 kg, CrCl > 30 mL/min) AND/OR *Sequential Compression Device (SCD) 5 or more Highest Order ONE of the following medications: *Heparin 5000 units SQ TID (Preferred with Epidurals) *Enoxaparin/Lovenox 40 mg SQ daily (WT < 150 kg, CrCl > 30 mL/min) *Enoxaparin/Lovenox 30 mg SQ daily (WT < 150 kg, CrCl > 10-29 mL/min) *Enoxaparin/Lovenox 30 mg SQ BID (WT < 150 kg, CrCl > 30 mL/min) AND *Sequential Compression Device (SCD) Assessment and Plan Assessment and Plan 56-year-old male presents with a one-day history of severe abdominal pain, found to have elevated potassium, acute kidney injury, and intractable nausea and vomiting. Patient was admitted for acute pancreatitis but will also evaluate for possible gastroparesis and hyperemesis from marijuana Problem List: (1) Abdominal pain ICD Codes: R10.9 - Unspecified abdominal pain Status: Acute Plan: DDX includes gastroenteritis vs gastroparesis vs marijuana hyperemesis vs pancreatitis. CT reviewed in the EMR Continue Reglan and morphine Gastric emptying study Consider GI referral if no improvement Consider Ultrasound chronic pancreatitis can have a normal lipase and amylase as a "burned out" pancreas can sometimes make very little enzymes. As pt reports this is "just like his former pancreatitis" will treat him for that by advancing diet slowly as tolerate and using pain meds for now. Agree with eval for gastroparesis as he is diabetic but will also keep vomiting from marijuana in mind as the hot showers are suspicious for that. In any case his is improved today (2) Diabetes ICD Codes: E11.9 - Type 2 diabetes mellitus without complications Status: Chronic Plan: Holding PO meds for now SSI while inpatient. Currently on clear. Consider long acting insulin pending bedside sugars HgA1c will also give B12 (3) Acute kidney injury ICD Codes: N17.9 - Acute kidney failure, unspecified Status: Acute Plan: Likely prerenal from dehydration Fluids as below had CT with contrast in ED. will watch his renal fxn one more day. improved fortunately (4) Nausea and vomiting ICD Codes: R11.2 - Nausea with vomiting, unspecified Status: Acute Plan: DDX includes gastroparesis vs marijuana hyperemesis vs other Gastric emptying study Improvement with reglan, to continue Counseled to stop marijuana IV fluids as below (5) Hyperkalemia ICD Codes: E87.5 - Hyperkalemia Status: Acute Plan: Slightly elevated. EKG reviewed. Expect improvement with IV fluids and insulin Repeat labs in AM. (6) Marijuana abuse ICD Codes: F12.10 - Cannabis abuse, uncomplicated Status: Chronic Plan: possibly contributing to N/V and pain Counseled to stop (7) FEN/PPX Status: Acute Plan: Fluids: NS 180 ml/hr Electrolytes: monitor and replace as needed Nutrition: clear liquids while continues to have pain, although he is starting to have an appetite and pain is improving PPX: heparin q8 (8) B12 deficiency ICD Codes: E53.8 - Deficiency of other specified B group vitamins Status: Chronic Plan: will give sq treatment while he is here and advised him he was low on this vitamin Problem Qualifiers (1) Abdominal pain: Qualified Codes: R10.9 - Unspecified abdominal pain (2) Diabetes: Qualified Codes: E11.42 - Type 2 diabetes mellitus with diabetic polyneuropathy (3) Nausea and vomiting: Qualified Codes: R11.2 - Nausea with vomiting, unspecified Pebbles Beltrán MD Feb 28, 2017 09:21
[2017-02-28 09:36] LABS: ALKALINE PHOSPHATASE 39 U/L (45-117); ALT (GPT) 29 U/L (12-78); ANION GAP 9 MEQ/L (5-15); AST (GOT) 15 U/L (15-37); BICARBONATE 23.9 MEQ/L (21.0-32.0); BLOOD UREA NITROGEN 19 MG/DL (7-18); CHLORIDE 108 MEQ/L (98-107); GLOMERULAR FILTRATION RATE 57 ML/MIN (>89); POTASSIUM 3.8 MEQ/L (3.5-5.1); SODIUM (NA) 141 MEQ/L (136-145); TOTAL BILIRUBIN ADULT 0.6 MG/DL (0.2-1.0)
[2017-02-28] MEDS: METOCLOPRAMIDE HCL 10 MG/2 ML VIAL IV PUSH SCH ×3 (10:00→20:33)
[2017-02-28 12:00] VITALS: BP_SYST 134; BP_SYST 148; BP_DIAS 77; BP_DIAS 78; PULSE 74; RESP 17; TEMP 97.7; O2SAT 95
[2017-02-28 12:00] LABS: HEMOGLOBIN A1a 1.1 %; HEMOGLOBIN A1b 1.9 %; HEMOGLOBIN Ao 84.8 %; HEMOGLOBIN LA1C 2.1 %
[2017-02-28] MEDS: CYANOCOBALAMIN 1000 MCG/ML VIAL IM SCH (14:56)
[2017-02-28 16:00] VITALS: BP 137/83; PULSE 77; RESP 18; TEMP 96.6; O2SAT 96
--- NOTE | 2017-02-28 16:05 | RADRPT ---
EXAM DATE/TIME: 02/28/2017 11:31 [place] COMPARISON: No previous studies available for comparison. INDICATIONS : Abdomen pain. Nausea and vomiting. DOSE: 1.1 mCi Tc99m Sulfur Colloid Labeled Whole egg PO MEDICATONS: 1.) 5 mg Reglan IV at 90 minutes IMAGIN hrs MEDICAL HISTORY : Hypertension. Diabetes mellitus type 2. Marijuana abuse. SURGICAL HISTORY : Total knee replacement, right. Appendectomy. ENCOUNTER: Initial ACUITY: 1 day PAIN SCALE: 1/10 LOCATION: Bilateral upper quadrant TECHNIQUE: Following the oral ingestion of radiotracer-labeled meal, dynamic sequential images in the CHARLA projec tion were acquired with simultaneous computer acquisition. The data set was decay-corrected. FINDINGS: LAG PHASE: There is no lack phase EMPTYING: Gastric emptying kinetics are linear. The decay-corrected, back-extrapolated half-time of emptying i s 83 minutes. (Normal for this lab is 45- 90 minutes.) INTERVENTION: No response to Reglan CONCLUSION: Normal gastric and without T. one half 83 minutes Jesus Morel MD FACR on February 28, 2017 at 16:02 Board Certified Radiologist. This report was verified electronically.
--- NOTE | 2017-02-28 16:18 | EKG ---
Date Performed: 02/27/2017 Time Performed: 16:50:20 PTAGE: 56 years EKG: SINUS BRADYCARDIA WITH SINUS ARRHYTHMIA Since previous tracing, no significant change noted BORDERLINE ECG PREVIOUS TRACING : 02/20/2010 10.48 DOCTOR: Lakia Razo Interpretating Date/Time 02/28/2017 16:17:39
[2017-02-28 20:00] VITALS: BP 127/88; PULSE 72; RESP 17; TEMP 97.1; O2SAT 97
[2017-02-28] MEDS ORDERED: TAMSULOSIN HCL 0.4 MG CAP PO SCH (21:00)
[2017-03-01] VITALS: BP 122/75; PULSE 73; RESP 17; TEMP 97.3; O2SAT 95
[2017-03-01] MEDS: MORPHINE SULFATE 4 MG/ML INJ IV PUSH PRN ×2 (00:45→03:59)
[2017-03-01] MEDS: METOCLOPRAMIDE HCL 10 MG/2 ML VIAL IV PUSH SCH ×2 (03:58→10:00)
[2017-03-01] MEDS: SODIUM CHLOR 0.9% 1000 ML INJ 1,000 ML IV SCH (03:59)
[2017-03-01] MEDS: HEPARIN SODIUM - SQ 10,000 UNITS/ML VIAL SQ SCH (04:02)
[2017-03-01 07:11] LABS: BICARBONATE 27.2 MEQ/L (21.0-32.0); POTASSIUM 3.7 MEQ/L (3.5-5.1)
[2017-03-01] MEDS: INSULIN ASPART SUPPLEMENTAL SCALE SQ SCH ×2 (07:19→11:32)
[2017-03-01 08:00] VITALS: BP 163/79; PULSE 67; RESP 18; TEMP 96.4; O2SAT 95
--- NOTE | 2017-03-01 08:39 | HHI.FPPN ---
Subjective Remarks Patient was seen and evaluated this morning. Patient upset about not having received regular diet. He has been consuming liquids without complaints of abdominal pain, nausea or vomiting. He reports little sleep over night. Patient states that he will be leaving the hospital with or without medical clearance today. Patient denies chest pain, heart palpitations, shortness of breath, diarrhea and constipation. Marijuana use was discussed as possible reason for patient's condition, prompting admission to the hospital. Patient unwilling to listen and discuss cessation of marijuana use. All questions were answered. (Nicol Dias MD R1) Objective Vitals Vital Signs Date Time Temp Pulse Resp B/P (MAP) Pulse Ox O2 Delivery O2 Flow Rate FiO2 03/01/17 08:00 96.4 67 18 163/79 (107) 95 03/01/17 00:00 97.3 73 17 122/75 (91) 95 02/28/17 20:00 97.1 72 17 127/88 (101) 97 02/28/17 16:00 96.6 77 18 137/83 (101) 96 02/28/17 12:00 97.7 74 17 134/78 (96) 95 I/O 02/28/17 02/28/17 02/28/17 03/01/17 03/01/17 03/01/17 07:00 15:00 23:00 07:00 15:00 23:00 Intake Total 240 ml 480 ml Balance 240 ml 480 ml Intake Oral 240 ml 480 ml # Voids 1 3 2 # Bowel Movements 0 (Nicol Dias MD R1) Result Diagram: 02/28/17 0752 03/01/17 0602 Imaging Last Impressions Abdomen/Pelvis CT 02/27/17 1628 Signed Impressions: Service Date/Time: January 18:32 - CONCLUSION: 1. Hepatic steatosis. 2. Left-sided colonic diverticula. 3. Suspected 2 cm left renal cyst. 4. Prostatic enlargement causing an impression on the bladder floor. Yvan Fregoso MD Gastric Emptying Nuclear Medicine 02/27/17 0000 Signed Impressions: Service Date/Time: Tuesday, February 28, 2017 11:31 - CONCLUSION: Normal gastric and without T. one half 83 minutes Jesus Morel MD FACR Chest X-Ray 02/27/17 0000 Signed Impressions: Service Date/Time: January 16:43 - CONCLUSION: No acute disease. Errol Juarez MD Objective Remarks GENERAL: Angered male lying comfortably in bed. No acute/respiratory distress. Protuberant abdomen. SKIN: Left 5th finger with well healed prior incision (3x3mm) and improved surrounding erythema. HEAD: Atraumatic. Normocephalic. EYES: Pupils equal round. Extraocular motions intact. No scleral icterus. No injection or drainage. ENT: Nose without bleeding, purulent drainage or septal hematoma. Airway patent. NECK: Trachea midline. No JVD. CARDIOVASCULAR: Regular rate and rhythm without murmurs, gallops, or rubs. RESPIRATORY: Clear to auscultation. Breath sounds equal bilaterally. No wheezes , rales, or rhonchi. GASTROINTESTINAL: Positive bowel sounds. Abdomen protuberant, non-tender. No hepato-splenomegaly, or palpable masses. No guarding. MUSCULOSKELETAL: Extremities without clubbing, cyanosis, or edema. No joint tenderness, effusion, or edema noted. No calf tenderness. NEUROLOGICAL: Awake and alert. Cranial nerves II through XII intact. Motor grossly within normal limits. Severe sensory loss in the feet bilaterally. Five out of 5 muscle strength in all muscle groups. Normal speech. Medications and IVs Current Medications Medications (Trade) Dose Ordered Sig/Juan José Route Start Time Stop Time Status Last Admin (Flomax) 0.4 mg HS PO 02/28/17 21:00 02/28/17 20:32 Sodium Chloride 1,000 ml @ 180 mls/hr Q5H34M IV 02/27/17 21:19 03/01/17 03:59 (NS Flush) 2 ml UNSCH PRN IV FLUSH 02/27/17 21:30 (NS Flush) 2 ml BID IV FLUSH 02/28/17 09:00 02/28/17 07:52 (Restoril) 15 mg HS PRN PO 02/27/17 21:30 (Heparin Inj) 5,000 units Q8H SQ 02/27/17 22:00 03/01/17 04:02 (Narcan Inj) 0.4 mg UNSCH PRN IV PUSH 02/27/17 21:30 (Sandra-Colace) 1 tab BID PO 02/28/17 09:00 02/28/17 07:53 (Milk Of Magnesia Liq) 30 ml Q12H PRN PO 02/27/17 21:30 (Senokot) 17.2 mg Q12H PRN PO 02/27/17 21:30 (Dulcolax Supp) 10 mg DAILY PRN RECTAL 02/27/17 21:30 (Lactulose Liq) 30 ml DAILY PRN PO 02/27/17 21:30 (D50w (Vial) Inj) 50 ml UNSCH PRN IV PUSH 02/27/17 21:30 (Glucagon Inj) 1 mg UNSCH PRN OTHER 02/27/17 21:30 (NovoLOG SUPPLEMENTAL SCALE) 1 ACHS SLIDING SCALE SQ 02/28/17 08:00 (Morphine Inj) 4 mg Q3H PRN IV PUSH 02/27/17 21:45 03/01/17 03:59 (Reglan Inj) 5 mg Q6H IV PUSH 02/28/17 10:00 03/01/17 03:58 (Vitamin B12 Inj) 1,000 mcg DAILY IM 02/28/17 14:30 03/01/17 08:57 (Nicol Dias MD R1) Urinary Catheter: No (Nicol Dias MD R1) Vascular Central Line Catheter: No (Nicol Dias MD R1) A/P Assessment and Plan 56-year-old male presents with a one-day history of severe abdominal pain, intractable nausea and vomiting, elevated potassium and acute kidney injury. (Nicol Dias MD R1) Attending Attestation Patient seen and examined. Case reviewed and discussed with the resident team. Agree with plan of care as discussed with me and documented in the resident note. happily he feels better and insists on leaving the hospital. this is suspicious with the hot showers making him better for marijuana induced vomiting (Pebbles Beltrán MD) Problem List: (1) Abdominal pain ICD Codes: R10.9 - Unspecified abdominal pain Status: Acute Plan: Clinically improved today. Patient denies abdominal pain, nausea and vomiting. He is hungry and demands food. Differential diagnosis: * Gastroenteritis vs gastroparesis vs marijuana hyperemesis vs acute/chronic pancreatitis. Labs: * WBC: 10.1 (02/28) <- 8.7 (02/27) * Na: 143 (03/01) <- 141 (02/28) <- 135 (02/27) * K: 3.7 (03/01) <- 3.8 (02/28) <- 6.0 (02/27) * Cl: 109 (03/01) <- 108 (02/28) <- 103 (02/27) Imaging: * Abdomen and Pelvis CT 02/27: Hepatic steatosis. Left-sided colonic diverticula. Suspected 2cm left renal cyst. Prostatic enlargement causing compression on the bladder floor. * Gastric Emptying Nuclear Medicine: Normal. Orders/Medications: * Diet as tolerated. * Vitamin B12 1,000 mcg daily IM. * Metoclopramide 5mg q6hr IV. * Sandra-Colace 1 tab BID PO. * NS 1,000 ml at 180 mls/hr IV. (2) Nausea and vomiting ICD Codes: R11.2 - Nausea with vomiting, unspecified Status: Acute Plan: See Plan for Abdominal pain. (3) Hyperkalemia ICD Codes: E87.5 - Hyperkalemia Status: Acute Plan: Resolved. Differential diagnosis: * Vomiting versus dehydration Labs: * K: 3.7 (03/01) <- 3.8 (02/28) <- 6.0 (02/27) Imaging: * EKG without evidence of tenting T waves. (4) Marijuana abuse ICD Codes: F12.10 - Cannabis abuse, uncomplicated Status: Chronic Plan: Possibly contributing to abdominal pain, nausea and vomiting. Counseled to stop use. Patient unwilling to listen and discuss cessation of marijuana use. (5) Acute kidney injury ICD Codes: N17.9 - Acute kidney failure, unspecified Status: Acute Plan: Improved. Differential diagnoses: * Likely prerenal from dehydration. Labs: * BUN: 15 (03/01) <- 19 (02/28) <- 28 (02/27) * Cr: 1.32 (03/01) <- 1.31 (02/28) <- 1.96 (02/27) Orders/Medication: * NS 1,000 ml at 180 mls/hr IV. (6) Diabetes ICD Codes: E11.9 - Type 2 diabetes mellitus without complications Status: Chronic Plan: Orders/Medications: * Holding home PO medications. * SSI while inpatient. Patient has not required insulin during this stay. (7) FEN/PPX Status: Acute Plan: Fluids: * NS 1,000 ml at 180 mls/hr IV. Electrolytes: * Monitor and replace as needed. Nutrition: * Diet as tolerated. DVT prophylaxis: * Heparin 5,000 units q8hr SQ. (Nicol Dias MD R1) Problem Qualifiers (1) Abdominal pain: Qualified Codes: R10.9 - Unspecified abdominal pain (2) Nausea and vomiting: Qualified Codes: R11.2 - Nausea with vomiting, unspecified (3) Diabetes: Qualified Codes: E11.42 - Type 2 diabetes mellitus with diabetic polyneuropathy Nicol Dias MD R1 Mar 01, 2017 08:39 Pebbles Beltrán MD Mar 03, 2017 12:22
[2017-03-01] MEDS: CYANOCOBALAMIN 1000 MCG/ML VIAL IM SCH (08:57)
[2017-03-01] MEDS: DOCUSATE SODIUM 50 MG/SENNA 8.6 MG TAB PO SCH (08:59)
[2017-03-01] MEDS: SODIUM CHLORIDE 0.9% FLUSH 10 ML FLUSH IV FLUSH SCH (08:59)
--- NOTE | 2017-03-01 11:52 | HHI.DCPOC ---
Discharge Care Plan Diagnosis: (1) Nausea and vomiting (2) Acute kidney injury (3) Marijuana abuse (4) Abdominal pain Goals to Promote Your Health * To prevent worsening of your condition and complications * To maintain your health at the optimal level Directions to Meet Your Goals Take your medications as prescribed Follow your dietary instruction Follow activity as directed Keep your appointments as scheduled Take your immunizations and boosters as scheduled If your symptoms worsen call your PCP, if no PCP go to Urgent Care Center or Emergency Room Smoking is Dangerous to Your Health. Avoid second hand smoke Call the 24-hour hour crisis hotline for domestic abuse at Dalton Malhotra MD R2 Mar 01, 2017 11:52
[2017-03-01 12:00] VITALS: BP 155/85; PULSE 78; RESP 20; TEMP 96.7; O2SAT 96
--- NOTE | 2017-03-01 12:41 | HHI.DS ---
Discharge Summary Admission Date Feb 27, 2017 at 20:40 Discharge Date: Mar 01, 2017 Admitting Diagnosis Abdominal pain, nausea and vomiting, ANTONI, hyperkalemia (1) Hyperkalemia ICD Codes: E87.5 - Hyperkalemia Status: Acute (2) Marijuana abuse ICD Codes: F12.10 - Cannabis abuse, uncomplicated Status: Chronic (3) Diabetes ICD Codes: E11.9 - Type 2 diabetes mellitus without complications Status: Chronic (4) Nausea and vomiting ICD Codes: R11.2 - Nausea with vomiting, unspecified Status: Acute (5) Abdominal pain ICD Codes: R10.9 - Unspecified abdominal pain Status: Acute (6) Acute kidney injury ICD Codes: N17.9 - Acute kidney failure, unspecified Status: Acute Brief History 56-year-old male presents to the ED on 02/27 with a one-day history of severe abdominal pain, intractable nausea and vomiting, elevated potassium and acute kidney injury. CBC/BMP: 02/28/17 0752 03/01/17 0602 Significant Findings Laboratory Tests Test 02/27/17 16:45 02/27/17 18:15 02/28/17 07:52 03/01/17 06:02 Hemoglobin 17.1 GM/DL (13.0-17.0) Neutrophils (%) (Auto) 87.8 % (16.0-70.0) 77.5 % (16.0-70.0) Lymphocytes (%) (Auto) 8.8 % (9.0-44.0) Lymphocytes # (Auto) 0.8 TH/MM3 (1.0-4.8) Blood Urea Nitrogen 28 MG/DL (7-18) 19 MG/DL (7-18) Creatinine 1.96 MG/DL (0.60-1.30) 1.31 MG/DL (0.60-1.30) 1.32 MG/DL (0.60-1.30) Random Glucose 228 MG/DL (74-106) Total Protein 8.8 GM/DL (6.4-8.2) Sodium Level 135 MEQ/L (136-145) Potassium Level 6.0 MEQ/L (3.5-5.1) Estimat Glomerular Filtration Rate 36 ML/MIN (>89) 57 ML/MIN (>89) 57 ML/MIN (>89) Troponin I LESS THAN 0.02 NG/ML LESS THAN 0.02 NG/ML Urine Protein 30 mg/dL (NEG-TRACE) Urine Glucose (UA) 1000 mg/dL (NEG) Urine Ketones 10 mg/dL (NEG) Urine Mucus FEW /lpf (OCC) Monocytes (%) (Auto) 9.4 % (0.0-8.0) Neutrophils # (Auto) 7.8 TH/MM3 (1.8-7.7) Monocytes # (Auto) 1.0 TH/MM3 (0-0.9) Alkaline Phosphatase 39 U/L (45-117) Chloride Level 108 MEQ/L (98-107) 109 MEQ/L (98-107) Calcium Level 8.1 MG/DL (8.5-10.1) Imaging Last Impressions Abdomen/Pelvis CT 02/27/17 1628 Signed Impressions: Service Date/Time: January 18:32 - CONCLUSION: 1. Hepatic steatosis. 2. Left-sided colonic diverticula. 3. Suspected 2 cm left renal cyst. 4. Prostatic enlargement causing an impression on the bladder floor. Yvan Fregoso MD Gastric Emptying Nuclear Medicine 02/27/17 0000 Signed Impressions: Service Date/Time: Tuesday, February 28, 2017 11:31 - CONCLUSION: Normal gastric and without T. one half 83 minutes Jesus Morel MD FACR Chest X-Ray 02/27/17 0000 Signed Impressions: Service Date/Time: January 16:43 - CONCLUSION: No acute disease. Errol Juarez MD PE at Discharge GENERAL: Angered male lying comfortably in bed. No acute/respiratory distress. Protuberant abdomen. SKIN: Left 5th finger with well healed prior incision (3x3mm) and improved surrounding erythema. HEAD: Atraumatic. Normocephalic. EYES: Pupils equal round. Extraocular motions intact. No scleral icterus. No injection or drainage. ENT: Nose without bleeding, purulent drainage or septal hematoma. Airway patent. NECK: Trachea midline. No JVD. CARDIOVASCULAR: Regular rate and rhythm without murmurs, gallops, or rubs. RESPIRATORY: Clear to auscultation. Breath sounds equal bilaterally. No wheezes , rales, or rhonchi. GASTROINTESTINAL: Positive bowel sounds. Abdomen protuberant, non-tender. No hepato-splenomegaly, or palpable masses. No guarding. MUSCULOSKELETAL: Extremities without clubbing, cyanosis, or edema. No joint tenderness, effusion, or edema noted. No calf tenderness. NEUROLOGICAL: Awake and alert. Cranial nerves II through XII intact. Motor grossly within normal limits. Severe sensory loss in the feet bilaterally. Five out of 5 muscle strength in all muscle groups. Normal speech. Hospital Course Patient improved clinically from day to day. While initially he was NPO, his diet was advanced as tolerated. Patient did not complain of abdominal pain, nausea or vomiting on the day of discharge. Included in our differential diagnosis, gastroenteritis vs gastroparesis vs marijuana hyperemesis vs acute/ chronic pancreatitis. Gastric emptying nuclear medicine study performed on day one of his hospital stay was read as normal. Lipase and abdominal imaging did not suggest pancreatitis. Marijuana use was discussed but patient was not interested in listening to marijuana use cessation. Patient was treated with metoclopramide and received NS 1,000 ml at 180 mls/hr IV. Labs: * WBC: 10.1 (02/28) <- 8.7 (02/27) * Na: 143 (03/01) <- 141 (02/28) <- 135 (02/27) * K: 3.7 (03/01) <- 3.8 (02/28) <- 6.0 (02/27) * Cl: 109 (03/01) <- 108 (02/28) <- 103 (02/27) * BUN: 15 (03/01) <- 19 (02/28) <- 28 (02/27) * Cr: 1.32 (03/01) <- 1.31 (02/28) <- 1.96 (02/27) Imaging: * Abdomen and Pelvis CT 02/27: Hepatic steatosis. Left-sided colonic diverticula. Suspected 2cm left renal cyst. Prostatic enlargement causing compression on the bladder floor. * Gastric Emptying Nuclear Medicine: Normal. Pt Condition on Discharge: Stable Discharge Disposition: Discharge Home Discharge Instructions DIET: Follow Instructions for: As Tolerated, No Restrictions Activities you can perform: Regular-No Restrictions Follow up Referrals: PCP Follow-up - 3-5 Days New Orders: BASIC METABOLIC PROF - 1 Week Continued Medications: Fenofibrate (Fenofibrate) 50 Mg Cap 50 MG PO DAILY, #30 CAP 0 Refills Glucose Blood (Contour Blood Glucose Test Strip #100) Strp 1 STRIP XX DIRECTED, #100 STRIPS 6 Refills Glyburide (Glyburide) 5 Mg Tab 10 MG PO BID for Blood Sugar Management, #120 TAB 0 Refills Take with meals at the same time each day Meloxicam (Meloxicam) 7.5 Mg Tab 7.5 MG PO DAILY for Arthritis Pain, TAB 0 Refills Metformin (Metformin) 1,000 Mg Tab 1000 MG PO BIDPC for Blood Sugar Management, #60 TAB 0 Refills Tamsulosin (Flomax) 0.4 Mg Cap 0.4 MG PO HS for Manage Prostate Problems, #30 CAP 0 Refills Discontinued Medications: Cephalexin (Keflex) 500 Mg Capsule 500 MG PO Q6H for Infection for 10 Days, #40 CAP 0 Refills Sulfamethoxazole-Trimethoprim (Bactrim DS) 800-160 Mg Tab 1 TAB PO BID for Infection, #20 TAB 0 Refills Nicol Dias MD R1 Mar 01, 2017 12:41
== END 2017-03-01 13:39 | disposition home or self-care (01) | DRG 684 ==
LOC: NEPC 16:01 → NEDA 20:40 → N07A 23:44
PROVIDERS: ADMIT Family Medicine; ATTEND Family Medicine
DX: N17.9 Acute kidney failure, unspecified (principal); E11.42 Type 2 diabetes mellitus with diabetic polyneuropathy; K76.0 Fatty (change of) liver, not elsewhere classified; E87.5 Hyperkalemia; F12.188 Cannabis abuse with other cannabis-induced disorder; I10 Essential (primary) hypertension; R10.9 Unspecified abdominal pain; R11.2 Nausea with vomiting, unspecified; M06.9 Rheumatoid arthritis, unspecified; R00.1 Bradycardia, unspecified; E53.8 Deficiency of other specified B group vitamins; L08.9 Local infection of the skin and subcutaneous tissue, unspecified; K57.30 Diverticulosis of large intestine without perforation or abscess without bleeding; N28.1 Cyst of kidney, acquired; N40.0 Benign prostatic hyperplasia without lower urinary tract symptoms; E78.5 Hyperlipidemia, unspecified; E86.0 Dehydration; F17.200 Nicotine dependence, unspecified, uncomplicated; F41.9 Anxiety disorder, unspecified; Z79.84 Long term (current) use of oral hypoglycemic drugs
CPT/HCPCS: 71010; 74177; 78264; 80048; 80053; 80074; 81001; 82550; 82552; 82948; 83036; 83690; 84484; 85025; 85610; 85730; 93005; 94150; 94664; 96361; 96374; 96375; 96376; A9541; J1644; J1815; J2270; J2405; J2550; J2765; J3420; J7030; J7611; Q9967

== ENCOUNTER 2017-07-10 12:16 | Observation (INO) | payer OTHER ==
[~2017-07-10] VITALS: Ht 188 cm; Wt 109.0 kg
[~2017-07-10 12:16] MED LIST changes: -BACT800T5 PO; -CEPH-460 PO
[2017-07-10] MEDS ORDERED: IOHEXOL 350 MG/ML 10 ML VIAL (for RAD DIAG) IVCONTRAST ONE (12:17)
[2017-07-10 12:41] VITALS: BP 158/76; PULSE 77; RESP 21; TEMP 98.4; O2SAT 100
[2017-07-10 13:42] VITALS: BP 178/87; PULSE 62; O2SAT 99
--- NOTE | 2017-07-10 13:44 | PD ---
HPI Chief Complaint: Chest Pain Time Seen by Provider: 13:38 Travel History International Travel<30 days: No Contact w/Intl Traveler<30days: No Traveled to known affect area: No History of Present Illness HPI 56-year-old male with PMH of DM, pancreatitis presents to the ED for evaluation of approximate 12 hour history of pancreatitis presents to the ED for evaluation of approximate 12 hour history of sudden onset epigastric pain, radiating to the left chest and associated nonbloody, non-bilious vomiting since about 6 AM. The patient endorses chills. He denies palpitations, shortness of breath, diaphoresis. He states that he used to be a heavy drinker , quit about 15 years ago. He states it his symptoms are similar to previous episodes of pancreatitis. Patient endorses chronic marijuana use. No treatment attempted at home. PFSH Past Medical History Arthritis: Yes Cancer: No Cardiovascular Problems: Yes (htn, not taking meds) High Cholesterol: Yes Diabetes: Yes (type 2) Diminished Hearing: No Genitourinary: Yes Hypertension: Yes Kidney Stones: Yes Musculoskeletal: Yes Neurologic: Yes Psychiatric: No Reproductive: No Respiratory: No Seizures: Yes Past Surgical History Appendectomy: Yes Social History Alcohol Use: No Tobacco Use: Yes (/2 PPD) Substance Use: Yes (smoke pot) Allergies-Medications (Allergen,Severity, Reaction): Coded Allergies: No Known Allergies (Verified Adverse Reaction, Unknown, 07/10/17) Uncoded Allergies: [facility] (Allergy, Unknown, 02/03/09) Reported Meds & Prescriptions Reported Meds & Active Scripts Active Reported Fenofibrate 50 Mg Cap 50 Mg PO DAILY Flomax (Tamsulosin HCl) 0.4 Mg Cap 0.4 Mg PO HS Glyburide 5 Mg Tab 10 Mg PO BID Take with meals at the same time each day Metformin (Metformin HCl) 1,000 Mg Tab 1,000 Mg PO BIDPC Meloxicam 7.5 Mg Tab 7.5 Mg PO DAILY Review of Systems Except as stated in HPI: all other systems reviewed are Neg Physical Exam Narrative GENERAL: Well-nourished, well-developed white male in no acute distress. SKIN: Focused skin assessment warm/dry. HEAD: Normocephalic. EYES: No scleral icterus. No injection or drainage. NECK: Supple, trachea midline. No JVD or lymphadenopathy. CARDIOVASCULAR: Regular rate and rhythm without murmurs, gallops, or rubs. RESPIRATORY: Breath sounds clear and equal bilaterally. No accessory muscle use. GASTROINTESTINAL: Abdomen soft, distended, tender to palpation in the epigastric region. Hypoactive bowel sounds. MUSCULOSKELETAL: No cyanosis, or edema. Moves extremities spontaneously. BACK: Nontender without obvious deformity. No CVA tenderness. Data Data Last Documented VS Vital Signs Date Time Temp Pulse Resp B/P (MAP) Pulse Ox O2 Delivery O2 Flow Rate FiO2 07/10/17 13:47 162/78 (106) 07/10/17 13:42 62 99 07/10/17 12:41 98.4 21 Orders Orders Electrocardiogram (07/10/17 12:46) Complete Blood Count With Diff (07/10/17 12:46) Basic Metabolic Panel (Bmp) (07/10/17 12:46) Ckmb (Isoenzyme) Profile (07/10/17 12:46) Troponin I (07/10/17 12:46) Iv Access Insert/Monitor (07/10/17 12:46) Ecg Monitoring (07/10/17 12:46) Oxygen Administration (07/10/17 12:46) Oximetry (07/10/17 12:46) Chest, Pa & Lat (07/10/17 12:46) Lipase (07/10/17 13:40) Ondansetron Inj (Zofran Inj) (07/10/17 13:45) Sodium Chlor 0.9% 1000 Ml Inj (Ns 1000 M (07/10/17 13:45) Aspirin (Aspirin) (07/10/17 13:45) Blood Glucose (07/10/17 13:44) Morphine Inj (Morphine Inj) (07/10/17 14:00) Drug Screen, Random Urine (07/10/17 14:12) Ct Abd/Pel W Iv Contrast(Rout) (07/10/17 14:22) CKMB (07/10/17 13:45) CKMB% (07/10/17 13:45) Act Partial Throm Time (Ptt) (07/10/17 14:49) Prothrombin Time / Inr (Pt) (07/10/17 14:49) Ondansetron Inj (Zofran Inj) (07/10/17 15:15) Iohexol 350 Inj (Omnipaque 350 Inj) (07/10/17 12:17) Metoclopramide Inj (Reglan Inj) (07/10/17 16:15) Diphenhydramine Inj (Benadryl Inj) (07/10/17 16:15) Sodium Chlor 0.9% 1000 Ml Inj (Ns 1000 M (07/10/17 16:30) Admit Order (Ed Use Only) (07/10/17 17:08) Labs Laboratory Tests Test 07/10/17 13:45 White Blood Count 9.1 TH/MM3 Red Blood Count 5.83 MIL/MM3 Hemoglobin 17.5 GM/DL Hematocrit 50.3 % Mean Corpuscular Volume 86.2 FL Mean Corpuscular Hemoglobin 29.9 PG Mean Corpuscular Hemoglobin Concent 34.7 % Red Cell Distribution Width 13.5 % Platelet Count 187 TH/MM3 Mean Platelet Volume 8.4 FL Neutrophils (%) (Auto) 88.9 % Lymphocytes (%) (Auto) 7.5 % Monocytes (%) (Auto) 3.2 % Eosinophils (%) (Auto) 0.1 % Basophils (%) (Auto) 0.3 % Neutrophils # (Auto) 8.1 TH/MM3 Lymphocytes # (Auto) 0.7 TH/MM3 Monocytes # (Auto) 0.3 TH/MM3 Eosinophils # (Auto) 0.0 TH/MM3 Basophils # (Auto) 0.0 TH/MM3 CBC Comment DIFF FINAL Differential Comment Prothrombin Time 10.6 SEC Prothromb Time International Ratio 1.0 RATIO Activated Partial Thromboplast Time 25.9 SEC Blood Urea Nitrogen 20 MG/DL Creatinine 1.60 MG/DL Random Glucose 230 MG/DL Calcium Level 9.5 MG/DL Sodium Level 139 MEQ/L Potassium Level 5.0 MEQ/L Chloride Level 103 MEQ/L Carbon Dioxide Level 21.9 MEQ/L Anion Gap 14 MEQ/L Estimat Glomerular Filtration Rate 45 ML/MIN Total Creatine Kinase 124 U/L Creatine Kinase MB 2.6 NG/ML Troponin I LESS THAN 0.02 NG/ML Lipase 216 U/L MDM Medical Decision Making Medical Screen Exam Complete: Yes Emergency Medical Condition: Yes Differential Diagnosis Pancreatitis versus hyperglycemia versus cannabis hyperemesis syndrome versus metabolic derangement versus less likely ACS versus other Narrative Course 56-year-old male with history of DM, pancreatitis presents to the ED for evaluation of sudden onset epigastric pain, nausea and vomiting approximately 6 AM. On presentation the patient is retching. Abdomen is distended, tender in the epigastric region. Exam is otherwise unremarkable. IV was established. Patient was administered 1 L normal saline, 4 mg morphine, 4 mg Zofran IV. EKG: Rate 67, sinus rhythm. IN interval 199, QRS 102, QTC 4 3 ms. Normal axis. No acute ST changes. Reviewed by Dr. Mcclain. CXR: No acute findings. Cardiac enzymes: Negative 1. CBC: No acute abnormalities. CMP: BUN 20, creatinine 1.6. GFR 45. Lipase: 216 CT abdomen:1. Enlarged fatty liver. 2. Enlarged prostate. 3. Uncomplicated colonic diverticulosis. 4. Bilateral inguinal hernias containing only fat. 5. Stable 2.2 cm left renal cyst. 6. Coronary artery calcifications. 7. Degenerative changes and scoliosis of the thoraco-lumbar spine. Patient continues with nausea and vomiting, was administered a second dose of Zofran. Nausea persistent, was administered Reglan and Benadryl IV along with a second liter of normal saline. I discussed the patient's workup and results. We discussed his marijuana use. He states he is a "recreational user," last use a day and a half ago. Patient with intractable nausea and vomiting, I suspect cannabinoid hyperemesis. Plan to admit for observation overnight. Patient is agreeable. I spoke with Dr. Lomas who agrees to accept the patient to the medicine service. Please see medicine notes for disposition. Diagnosis Primary Impression: Intractable nausea and vomiting Qualified Codes: R11.2 - Nausea with vomiting, unspecified Rosibel Owen Jul 10, 2017 13:44
[2017-07-10] MEDS ORDERED: ASPIRIN 325 MG TAB PO ONE (13:45)
[2017-07-10] MEDS ORDERED: ONDANSETRON HCL 4 MG/2 ML VIAL IV PUSH ONE ×2 (13:45→15:15)
[2017-07-10] MEDS ORDERED: SODIUM CHLOR 0.9% 1000 ML INJ 1,000 ML IV ONE ×2 (13:45→16:30)
[2017-07-10 13:47] VITALS: BP 162/78
[2017-07-10] MEDS ORDERED: MORPHINE SULFATE 2 MG/ML SYRINGE IV PUSH ONE (14:00)
[2017-07-10 14:05] LABS: AUTOMATED NEUTROPHIL # 8.1 TH/MM3 (1.8-7.7); BASOPHIL % 0.3 % (0.0-2.0); EOSINOPHIL % 0.1 % (0.0-4.0); HEMATOCRIT 50.3 % (39.0-51.0); HEMOGLOBIN 17.5 GM/DL (13.0-17.0); LYMPH % 7.5 % (9.0-44.0); LYMPHOCYTE # 0.7 TH/MM3 (1.0-4.8); MEAN CELL VOLUME 86.2 FL (80.0-100.0); MEAN CORPUSCULAR HEMOGLOBIN 29.9 PG (27.0-34.0); MEAN CORPUSCULAR HGB CONC 34.7 % (32.0-36.0); MEAN PLATELET VOLUME 8.4 FL (7.0-11.0); MONO % 3.2 % (0.0-8.0); MONOCYTE # 0.3 TH/MM3 (0-0.9); NEUT % 88.9 % (16.0-70.0); PLATELET COUNT 187 TH/MM3 (150-450); RED BLOOD COUNT 5.83 MIL/MM3 (4.50-5.90); RED CELL DISTRIBUTION WIDTH 13.5 % (11.6-17.2); WHITE BLOOD COUNT 9.1 TH/MM3 (4.0-11.0)
[2017-07-10 14:28] LABS: TROPONIN I LESS THAN 0.02 NG/ML (0.02-0.05)
[2017-07-10 14:42] LABS: BICARBONATE 21.9 MEQ/L (21.0-32.0); BLOOD UREA NITROGEN 20 MG/DL (7-18); CALCIUM 9.5 MG/DL (8.5-10.1); CHLORIDE 103 MEQ/L (98-107); GLOMERULAR FILTRATION RATE 45 ML/MIN (>89); GLUCOSE,RANDOM 230 MG/DL (74-106); SODIUM (NA) 139 MEQ/L (136-145)
--- NOTE | 2017-07-10 15:15 | RADRPT ---
EXAM DATE/TIME: 07/10/2017 15:01 [facility] COMPARISON: No previous studies available for comparison. INDICATIONS : Chest pain. MEDICAL HISTORY : Diabetes mellitus type I. Hypertension Pancreatitis. SURGICAL HISTORY : Appendectomy. ENCOUNTER: Initial ACUITY: 1 day PAIN SCORE: 4/10 LOCATION: Bilateral chest FINDINGS: PA and lateral views of the chest demonstrate the lungs to be symmetrically aerated without evidence of mass, infiltrate or effusion. The cardiomediastinal contours are unremarkable. Osseous structure s are intact. Radiopaque density left paramidline projecting over the upper thoracic trachea is presu mably on or behind the patient. CONCLUSION: 1. Lungs are clear. 2. Radiopaque density projecting over the upper thoracic trachea is presumably on or behind the patie nt. Derek Nolasco MD on July 10, 2017 at 15:11 Board Certified Radiologist. This report was verified electronically.
[2017-07-10 15:32] LABS: PROTHROMBIN TIME - PATIENT 10.6 SEC (9.8-11.6)
--- NOTE | 2017-07-10 15:41 | RADRPT ---
EXAM DATE/TIME: 07/10/2017 15:16 [facility] COMPARISON: CT ABDOMEN & PELVIS W CONTRAST, February 27, 2017, 18:32. INDICATIONS : Abdominal pain and vomiting IV CONTRAST: 88 cc Omnipaque 350 (iohexol) IV ORAL CONTRAST: No oral contrast ingested. RADIATION DOSE: 15.09 CTDIvol (mGy) MEDICAL HISTORY : Hypertension. Diabetes mellitus type 2. Renal calculi. SURGICAL HISTORY : Appendectomy. ENCOUNTER: Initial ACUITY: 1 day PAIN SCALE: 10/10 LOCATION: diffuse abdomen TECHNIQUE: Volumetric scanning of the abdomen and pelvis was performed. Using automated exposure control and ad justment of the mA and/or kV according to patient size, radiation dose was kept as low as reasonably achievable to obtain optimal diagnostic quality images. DICOM format image data is available electro nically for review and comparison. FINDINGS: LOWER LUNGS: The visualized lower lungs are clear. Coronary artery calcifications are noted. LIVER: The liver is enlarged and demonstrates diffuse fatty infiltration. No focal hepatic mass is noted. No biliary ductal dilatation is noted. The gallbladder is nondistended. SPLEEN: Normal size without lesion. PANCREAS: Within normal limits. KIDNEYS: Normal in size and shape. 2.2 cm left renal cyst is stable. There is no mass, stone or hydronephrosi s. ADRENAL GLANDS: Within normal limits. VASCULAR: There is no aortic aneurysm. BOWEL/MESENTERY: Uncomplicated colonic diverticulosis is noted. No acute diverticulitis is noted. ABDOMINAL WALL: Within normal limits. RETROPERITONEUM: There is no lymphadenopathy. BLADDER: No wall thickening or mass. REPRODUCTIVE: The prostate gland is significantly enlarged. INGUINAL: There is no lymphadenopathy. Bilateral inguinal hernias containing only fat are noted. MUSCULOSKELETAL: Degenerative changes and scoliosis of the thoraco-lumbar spine are noted. CONCLUSION: 1. Enlarged fatty liver. 2. Enlarged prostate. 3. Uncomplicated colonic diverticulosis. 4. Bilateral inguinal hernias containing only fat. 5. Stable 2.2 cm left renal cyst. 6. Coronary artery calcifications. 7. Degenerative changes and scoliosis of the thoraco-lumbar spine. Justice Bailey MD on July 10, 2017 at 15:32 Board Certified Radiologist. This report was verified electronically.
[2017-07-10] MEDS ORDERED: diphenhydrAMINE HCL 50 MG/ML VIAL IM ONE (16:15)
[2017-07-10] MEDS ORDERED: METOCLOPRAMIDE HCL 10 MG/2 ML VIAL IV PUSH ONE (16:15)
[2017-07-10] MEDS ORDERED: SODIUM CHLOR 0.9% 1000 ML INJ 1,000 ML IV SCH (17:29)
[2017-07-10] MEDS ORDERED: BISACODYL 10 MG SUPP RECTAL PRN (17:30)
[2017-07-10] MEDS ORDERED: SODIUM CHLORIDE 0.9% FLUSH 10 ML FLUSH IV FLUSH PRN (17:30)
[2017-07-10] MEDS ORDERED: NALOXONE HCL 0.4 MG/ML AMP IV PUSH PRN (17:30)
[2017-07-10] MEDS ORDERED: MAGNESIUM HYDROXIDE SUSP 30 ML CUP PO PRN (17:30)
[2017-07-10] MEDS ORDERED: SENNOSIDES 8.6 MG TAB PO PRN (17:30)
[2017-07-10] MEDS ORDERED: LACTULOSE SYRUP 20 GM/30 ML CUP PO PRN (17:30)
[2017-07-10] MEDS: SODIUM CHLOR 0.9% 1000 ML INJ 1,000 ML IV SCH ×4 (18:26→23:52)
[2017-07-10 19:13] VITALS: BP 151/79; PULSE 98; RESP 20; TEMP 98.1; O2SAT 98
[2017-07-10] MEDS ORDERED: DEXTROSE 50% IN WATER 50 ML VIAL(D50) IV PUSH PRN (20:00)
[2017-07-10] MEDS ORDERED: GLUCAGON 1 MG/ML VIAL OTHER PRN (20:00)
--- NOTE | 2017-07-10 20:00 | HHI.HP ---
[facility] Service [facility] Primary Care Physician Yvan Vieyra MD Admission Diagnosis Intractable nausea and vomiting Diagnoses: Travel History International Travel<30 Days: No Contact w/Intl Traveler <30 Da: No Traveled to Known Affected Are: No History of Present Illness 86-year-old male with a past medical history significant for diabetes mellitus, hypertension, hyperlipidemia, RA and neuropathy presents the emergency department for evaluation of abdominal pain. The patient states he has extreme epigastric abdominal pain that radiates to his chest. He states it started today and he has had multiple episodes of emesis. He denies any diarrhea. Endorses subjective fever/chills. He describes his chest pain is substernal and burning, nonradiating. He denies any associated shortness of breath or diaphoresis. No diarrhea. No increased fatigue/weakness. No lateralizing signs/symptoms. Review of Systems Except as stated in HPI: all other systems reviewed are Neg Past Family Social History Past Medical History Diabetes mellitus Hypertension Hyperlipidemia Rheumatoid arthritis Neuropathy Past Surgical History Left knee surgery Appendectomy Reported Medications Reported Meds & Active Scripts Active Reported Fenofibrate 50 Mg Cap 50 Mg PO DAILY Flomax (Tamsulosin HCl) 0.4 Mg Cap 0.4 Mg PO HS Glyburide 5 Mg Tab 10 Mg PO BID Take with meals at the same time each day Metformin (Metformin HCl) 1,000 Mg Tab 1,000 Mg PO BIDPC Meloxicam 7.5 Mg Tab 7.5 Mg PO DAILY Allergies: Coded Allergies: No Known Allergies (Verified Adverse Reaction, Unknown, 07/10/17) Uncoded Allergies: [facility] (Allergy, Unknown, 02/03/09) Family History Patient was adopted. Social History Negative for alcohol and tobacco. Daily marijuana use. Physical Exam Vital Signs Vital Signs Date Time Temp Pulse Resp B/P (MAP) Pulse Ox O2 Delivery O2 Flow Rate FiO2 07/10/17 19:13 98.1 98 20 151/79 (103) 98 07/10/17 18:30 07/10/17 14:00 Room Air 07/10/17 13:47 162/78 (106) 07/10/17 13:42 62 178/87 (117) 99 4/12/18 12:41 98.4 77 21 158/76 (103) 100 Physical Exam GENERAL: male lying in bed SKIN: No rashes, ecchymoses or lesions. Cool and dry. HEAD: Atraumatic. Normocephalic. No temporal or scalp tenderness. EYES: Pupils equal round and reactive. Extraocular motions intact. No scleral icterus. No injection or drainage. ENT: Nose without bleeding, purulent drainage or septal hematoma. Throat without erythema, tonsillar hypertrophy or exudate. Uvula midline. Airway patent. NECK: Trachea midline. No JVD or lymphadenopathy. Supple, nontender, no meningeal signs. CARDIOVASCULAR: Regular rate and rhythm without murmurs, gallops, or rubs. RESPIRATORY: Clear to auscultation. Breath sounds equal bilaterally. No wheezes , rales, or rhonchi. GASTROINTESTINAL: Abdomen soft, tender to palpation in all 4 quadrants, nondistended. No hepato-splenomegaly, or palpable masses. No guarding. MUSCULOSKELETAL: Extremities without clubbing, cyanosis, or edema. No joint tenderness, effusion, or edema noted. No calf tenderness. NEUROLOGICAL: Awake and alert. Cranial nerves II through XII intact. Motor and sensory grossly within normal limits. Normal speech. Laboratory Laboratory Tests Test 07/10/17 13:45 White Blood Count 9.1 Red Blood Count 5.83 Hemoglobin 17.5 Hematocrit 50.3 Mean Corpuscular Volume 86.2 Mean Corpuscular Hemoglobin 29.9 Mean Corpuscular Hemoglobin Concent 34.7 Red Cell Distribution Width 13.5 Platelet Count 187 Mean Platelet Volume 8.4 Neutrophils (%) (Auto) 88.9 Lymphocytes (%) (Auto) 7.5 Monocytes (%) (Auto) 3.2 Eosinophils (%) (Auto) 0.1 Basophils (%) (Auto) 0.3 Neutrophils # (Auto) 8.1 Lymphocytes # (Auto) 0.7 Monocytes # (Auto) 0.3 Eosinophils # (Auto) 0.0 Basophils # (Auto) 0.0 CBC Comment DIFF FINAL Differential Comment Prothrombin Time 10.6 Prothromb Time International Ratio 1.0 Activated Partial Thromboplast Time 25.9 Blood Urea Nitrogen 20 Creatinine 1.60 Random Glucose 230 Calcium Level 9.5 Sodium Level 139 Potassium Level 5.0 Chloride Level 103 Carbon Dioxide Level 21.9 Anion Gap 14 Estimat Glomerular Filtration Rate 45 Total Creatine Kinase 124 Creatine Kinase MB 2.6 Troponin I LESS THAN 0.02 Lipase 216 Result Diagram: 07/10/17 1345 07/10/17 1345 Caprini VTE Risk Assessment Caprini VTE Risk Assessment: No/Low Risk (score <= 1) Caprini Risk Assessment Model Point Value = 1 Point Value = 2 Point Value = 3 Point Value = 5 Age 41-60 Minor surgery BMI > 25 kg/m2 Swollen legs Varicose veins or History of unexplained or recurrent spontaneous Oral contraceptives or hormone replacement Sepsis (< 1 month) Serious lung disease, including pneumonia (< 1 month) Abnormal pulmonary function Acute myocardial infarction Congestive heart failure (< 1 month) History of inflammatory bowel disease Medical patient at bed rest Age 61-74 Arthroscopic surgery Major open surgery (> 45 min) Laparoscopic surgery (> 45 min) Malignancy Confined to bed (> 72 hours) Immobilizing plaster cast Central venous access Age >= 75 History of VTE Family history of VTE Factor V Leiden Prothrombin [id number] Lupus anticoagulant Anticardiolipin antibodies Elevated serum homocysteine Heparin-induced thrombocytopenia Other congenital or acquired thrombophilia Stroke (< 1 month) Elective arthroplasty Hip, pelvis, or leg fracture Acute spinal cord injury (< 1 month) Prophylaxis Regimen Total Risk Factor Score Risk Level Prophylaxis Regimen 0-1 Low Early ambulation 2 Moderate Order ONE of the following: *Sequential Compression Device (SCD) *Heparin 5000 units SQ BID 3-4 Higher Order ONE of the following medications: *Heparin 5000 units SQ TID *Enoxaparin/Lovenox 40 mg SQ daily (WT < 150 kg, CrCl > 30 mL/min) *Enoxaparin/Lovenox 30 mg SQ daily (WT < 150 kg, CrCl > 10-29 mL/min) *Enoxaparin/Lovenox 30 mg SQ BID (WT < 150 kg, CrCl > 30 mL/min) AND/OR *Sequential Compression Device (SCD) 5 or more Highest Order ONE of the following medications: *Heparin 5000 units SQ TID (Preferred with Epidurals) *Enoxaparin/Lovenox 40 mg SQ daily (WT < 150 kg, CrCl > 30 mL/min) *Enoxaparin/Lovenox 30 mg SQ daily (WT < 150 kg, CrCl > 10-29 mL/min) *Enoxaparin/Lovenox 30 mg SQ BID (WT < 150 kg, CrCl > 30 mL/min) AND *Sequential Compression Device (SCD) Assessment and Plan Assessment and Plan Assessment/plan: 1. Abdominal pain/nausea/vomiting CT of the abdomen/pelvis significant for an enlarged, fatty liver with uncomplicated diverticulosis May be secondary to daily marijuana use Zofran By mouth diet as tolerated 2. Chest pain May be secondary to reflux Initial troponin negative EKG significant for sinus rhythm without ST segment elevation/depressions, personally reviewed ACS rule out pending; serial troponins/EKGs 3. Diabetes mellitus Holding home oral anti-hyperglycemics Sliding scale insulin Monitor blood glucose 4. Hypertension/hyperlipidemia Continue home medications 5. ANTONI Creatinine 1.60, baseline 1.3 IV fluid hydration Monitor renal function FEN Heart healthy, diabetic diet as tolerated Electrolytes: Monitor and replete when necessary NS at 125 cc/hr Deanna Hendrix MD Jul 10, 2017 20:00
[2017-07-10] MEDS: ONDANSETRON HCL 4 MG/2 ML VIAL IVP PRN (20:26)
[2017-07-10] MEDS: SODIUM CHLORIDE 0.9% FLUSH 10 ML FLUSH IV FLUSH SCH (20:27)
[2017-07-10 20:38] VITALS: BP 153/78; PULSE 82; RESP 20; TEMP 98.3; O2SAT 98
[2017-07-10] MEDS: DOCUSATE SODIUM 50 MG/SENNA 8.6 MG TAB PO SCH (21:00)
[2017-07-10] MEDS: INSULIN ASPART SUPPLEMENTAL SCALE SQ SCH (21:00)
[2017-07-10 22:52] VITALS: BP 163/76; PULSE 70; RESP 18; TEMP 99.5; O2SAT 96
[2017-07-10] MEDS: TAMSULOSIN HCL 0.4 MG CAP PO SCH (23:51)
[2017-07-10 23:59] LABS: TROPONIN I LESS THAN 0.02 NG/ML (0.02-0.05)
[2017-07-11] VITALS (8 sets, daily range): BP systolic 129–160; BP diastolic 60–81; PULSE 60–77; RESP 18–20; TEMP 96.7–98.3; O2SAT 95–98
[2017-07-11] MEDS: MORPHINE SULFATE 2 MG/ML SYRINGE IV PUSH PRN ×5 (00:18→23:13)
[2017-07-11] MEDS: ONDANSETRON HCL 4 MG/2 ML VIAL IVP PRN (03:07)
[2017-07-11] MEDS: SODIUM CHLOR 0.9% 1000 ML INJ 1,000 ML IV SCH ×2 (03:08→12:58)
[2017-07-11 05:43] LABS: BASOPHIL % 0.3 % (0.0-2.0); EOSINOPHIL % 0.4 % (0.0-4.0); HEMATOCRIT 42.6 % (39.0-51.0); LYMPH % 23.4 % (9.0-44.0); LYMPHOCYTE # 2.1 TH/MM3 (1.0-4.8); MEAN CELL VOLUME 85.4 FL (80.0-100.0); MEAN CORPUSCULAR HEMOGLOBIN 29.9 PG (27.0-34.0); MEAN CORPUSCULAR HGB CONC 35.1 % (32.0-36.0); MEAN PLATELET VOLUME 8.5 FL (7.0-11.0); MONO % 9.9 % (0.0-8.0); MONOCYTE # 0.9 TH/MM3 (0-0.9); PLATELET COUNT 167 TH/MM3 (150-450); RED BLOOD COUNT 4.99 MIL/MM3 (4.50-5.90); RED CELL DISTRIBUTION WIDTH 13.5 % (11.6-17.2); WHITE BLOOD COUNT 9.1 TH/MM3 (4.0-11.0)
[2017-07-11 06:17] LABS: TROPONIN I LESS THAN 0.02 NG/ML (0.02-0.05)
[2017-07-11 06:20] LABS: BICARBONATE 26.6 MEQ/L (21.0-32.0); CALCIUM 8.4 MG/DL (8.5-10.1); CREATININE 1.19 MG/DL (0.60-1.30)
[2017-07-11] MEDS: INSULIN ASPART SUPPLEMENTAL SCALE SQ SCH ×4 (08:00→21:00)
--- NOTE | 2017-07-11 08:21 | PD.PN.STU ---
Subjective Remarks 86 year old male with DM, hypertension, hyperlipidemia, RA, neuropathy, presented to observation for abdominal pain of 2 days duration. His pain is epigastric in origin with radiation in the chest. He had yellow emesis at home, last emesis at 8pm last night. Denies hematemesis. Denies diarrhea, constipation. His last bowel movement was yesterday before presenting to the ED. No hematochezia. He had a similar episode to this in January 2017 that he came to [place] for. He had a gastric emptying study done then that was normal. Today he states his pain mildly better. Denies shortness of breath, chest pain. 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 Objective Vitals Vital Signs Date Time Temp Pulse Resp B/P (MAP) Pulse Ox O2 Delivery O2 Flow Rate FiO2 07/11/17 07:58 98.2 75 20 146/75 (98) 98 07/11/17 04:00 96.7 75 18 132/81 (98) 96 07/10/17 22:52 99.5 70 18 163/76 (105) 96 07/10/17 20:38 98.3 82 20 153/78 (103) 98 07/10/17 19:13 98.1 98 20 151/79 (103) 98 07/10/17 18:30 07/10/17 14:00 Room Air 07/10/17 13:47 162/78 (106) 07/10/17 13:42 62 178/87 (117) 99 07/10/17 12:41 98.4 77 21 158/76 (103) 100 I/O 07/10/17 07/10/17 07/10/17 07/11/17 07/11/17 07/11/17 07:00 15:00 23:00 07:00 15:00 23:00 Intake Total 1000 ml 600 ml Balance 1000 ml 600 ml Intake Oral 600 ml IV Total 1000 ml # Voids 5 Result Diagram: 07/11/17 0411 07/11/17 041 Imaging Last 24 hours Impressions Abdomen/Pelvis CT 07/10/17 1422 Signed Impressions: Service Date/Time: June 15:16 - CONCLUSION: 1. Enlarged fatty liver. 2. Enlarged prostate. 3. Uncomplicated colonic diverticulosis. 4. Bilateral inguinal hernias containing only fat. 5. Stable 2.2 cm left renal cyst. 6. Coronary artery calcifications. 7. Degenerative changes and scoliosis of the thoraco-lumbar spine. Justice Bailey MD Chest X-Ray 07/10/17 1246 Signed Impressions: Service Date/Time: June 15:01 - CONCLUSION: 1. Lungs are clear. 2. Radiopaque density projecting over the upper thoracic trachea is presumably on or behind the patient. Derek Nolasco MD Objective Remarks General: no acute distress Cardiac: regular rate and rhythm without murmurs, gallops, or rubs Resp: clear bilaterally throughout without rhonchi, rales, or wheezes Abdomen: protuberant abdomen without fluid wave. Tender to palpation mid epigastric and RUQ. No rebound tenderness. Hepatomegaly noted. Extremities: dorsalis pedis and radial pulses intact and equal bilaterally. No edema. Medications and IVs Current Medications Medications (Trade) Dose Ordered Sig/Juan José Route Start Time Stop Time Status Last Admin (NS Flush) 2 ml UNSCH PRN IV FLUSH 07/10/17 17:30 (NS Flush) 2 ml BID IV FLUSH 07/10/17 21:00 07/10/17 20:27 (Zofran Inj) 4 mg Q6H PRN IVP 07/10/17 17:30 07/11/17 03:07 (Narcan Inj) 0.4 mg UNSCH PRN IV PUSH 07/10/17 17:30 (Sandra-Colace) 1 tab BID PO 07/10/17 21:00 07/10/17 21:00 (Milk Of Magnesia Liq) 30 ml Q12H PRN PO 07/10/17 17:30 (Senokot) 17.2 mg Q12H PRN PO 07/10/17 17:30 (Dulcolax Supp) 10 mg DAILY PRN RECTAL 07/10/17 17:30 (Lactulose Liq) 30 ml DAILY PRN PO 07/10/17 17:30 (Flomax) 0.4 mg HS PO 07/10/17 21:00 07/10/17 23:51 (Tricor) 48 mg DAILY PO 07/11/17 09:00 (D50w (Vial) Inj) 50 ml UNSCH PRN IV PUSH 07/10/17 20:00 (Glucagon Inj) 1 mg UNSCH PRN OTHER 07/10/17 20:00 (NovoLOG SUPPLEMENTAL SCALE) 1 ACHS SLIDING SCALE SQ 07/10/17 21:00 Sodium Chloride 1,000 ml @ 125 mls/hr Q8H IV 07/10/17 20:00 07/11/17 03:08 (Morphine Inj) 2 mg Q3H PRN IV PUSH 07/11/17 00:15 07/11/17 03:07 A/P Assessment and Plan 1. Abdominal pain/nausea/vomiting CT of the abdomen/pelvis significant for an enlarged, fatty liver with uncomplicated diverticulosis May be secondary to daily marijuana use Zofran By mouth diet as tolerated 07/11 nausea improving. No emesis since 8pm 07/10. Consult to GI with possible endoscopy R/O gastritis vs PUD Differential includes: gastitis, PUD, pancreatitis, Cannibis hyperemesis syndrome, biliary disease - He endorses no alcohol use in 20 years but a heavy drinker in the past. Lipase normal and CT show no sign of pancreatitis. - fatty enlarged liver per CT. considr ordering liver functions (AST, ALT, Bilirubin, ALk Phos) 2. Chest pain May be secondary to reflux Initial troponin negative EKG significant for sinus rhythm without ST segment elevation/depressions, personally reviewed ACS rule out pending; serial troponins/EKGs 07/11 serial troponins negative; EKG no changes, no ST segment elevations/ depressions on review. CAD R/O. Can be taken off telemetry. 3. Diabetes mellitus Holding home oral anti-hyperglycemics Sliding scale insulin Monitor blood glucose 07/11 bedside glucose 121 this morning with SSI. Continue 4. Hypertension/hyperlipidemia Continue home medications 5. ANTONI Creatinine 1.60, baseline 1.3 IV fluid hydration Monitor renal function 07/11 creatine down to 1.19, GFR up to 64 from 45. Continue IVF NS 125 cc/hr. FEN Heart healthy, diabetic diet as tolerated Electrolytes: Monitor and replete when necessary NS at 125 cc/hr Betty Rm M3 Jul 11, 2017 08:21
[2017-07-11] MEDS: SODIUM CHLORIDE 0.9% FLUSH 10 ML FLUSH IV FLUSH SCH ×2 (11:17→20:50)
[2017-07-11] MEDS: FENOFIBRATE 48 MG TAB PO SCH (11:17)
[2017-07-11] MEDS: DOCUSATE SODIUM 50 MG/SENNA 8.6 MG TAB PO SCH ×2 (11:17→20:49)
--- NOTE | 2017-07-11 11:53 | HHI.PR ---
Subjective Remarks c/o RUQ/epigastric pain Feels nauseous but not vomiting any more. Afebrile BP elevated persistently up into the 160's systolic. Objective Vitals Vital Signs Date Time Temp Pulse Resp B/P (MAP) Pulse Ox O2 Delivery O2 Flow Rate FiO2 07/11/17 07:58 98.2 75 20 146/75 (98) 98 07/11/17 04:00 96.7 75 18 132/81 (98) 96 07/10/17 22:52 99.5 70 18 163/76 (105) 96 07/10/17 20:38 98.3 82 20 153/78 (103) 98 07/10/17 19:13 98.1 98 20 151/79 (103) 98 07/10/17 18:30 07/10/17 14:00 Room Air 07/10/17 13:47 162/78 (106) 07/10/17 13:42 62 178/87 (117) 99 07/10/17 12:41 98.4 77 21 158/76 (103) 100 I/O 07/10/17 07/10/17 07/10/17 07/11/17 07/11/17 07/11/17 07:00 15:00 23:00 07:00 15:00 23:00 Intake Total 1000 ml 600 ml Balance 1000 ml 600 ml Intake Oral 600 ml IV Total 1000 ml # Voids 5 Result Diagram: 07/11/17 0411 07/11/17 0411 Imaging Last Impressions Abdomen/Pelvis CT 07/10/17 1422 Signed Impressions: Service Date/Time: June 15:16 - CONCLUSION: 1. Enlarged fatty liver. 2. Enlarged prostate. 3. Uncomplicated colonic diverticulosis. 4. Bilateral inguinal hernias containing only fat. 5. Stable 2.2 cm left renal cyst. 6. Coronary artery calcifications. 7. Degenerative changes and scoliosis of the thoraco-lumbar spine. Justice Bailey MD Chest X-Ray 07/10/17 1246 Signed Impressions: Service Date/Time: June 15:01 - CONCLUSION: 1. Lungs are clear. 2. Radiopaque density projecting over the upper thoracic trachea is presumably on or behind the patient. Derek Nolasco MD Objective Remarks AAOx3 Anicteric sclera [id number], no MRG clear lungs BL no edema in lower extremities Procedures none Medications and IVs Current Medications Medications (Trade) Dose Ordered Sig/Juan José Route Start Time Stop Time Status Last Admin (NS Flush) 2 ml UNSCH PRN IV FLUSH 07/10/17 17:30 (NS Flush) 2 ml BID IV FLUSH 07/10/17 21:00 07/11/17 11:17 (Zofran Inj) 4 mg Q6H PRN IVP 07/10/17 17:30 07/11/17 03:07 (Narcan Inj) 0.4 mg UNSCH PRN IV PUSH 07/10/17 17:30 (Sandra-Colace) 1 tab BID PO 07/10/17 21:00 07/11/17 11:17 (Milk Of Magnesia Liq) 30 ml Q12H PRN PO 07/10/17 17:30 (Senokot) 17.2 mg Q12H PRN PO 07/10/17 17:30 (Dulcolax Supp) 10 mg DAILY PRN RECTAL 07/10/17 17:30 (Lactulose Liq) 30 ml DAILY PRN PO 07/10/17 17:30 (Flomax) 0.4 mg HS PO 07/10/17 21:00 07/10/17 23:51 (Tricor) 48 mg DAILY PO 07/11/17 09:00 07/11/17 11:17 (D50w (Vial) Inj) 50 ml UNSCH PRN IV PUSH 07/10/17 20:00 (Glucagon Inj) 1 mg UNSCH PRN OTHER 07/10/17 20:00 (NovoLOG SUPPLEMENTAL SCALE) 1 ACHS SLIDING SCALE SQ 07/10/17 21:00 Sodium Chloride 1,000 ml @ 125 mls/hr Q8H IV 07/10/17 20:00 07/11/17 03:08 (Morphine Inj) 2 mg Q3H PRN IV PUSH 07/11/17 00:15 07/11/17 03:07 A/P Problem List: (1) Intractable nausea and vomiting ICD Code: R11.2 - Nausea with vomiting, unspecified Status: Acute Plan: Differential diagnoses include peptic ulcer disease, gastritis, gastroparesis, hepatitis Check liver ultrasound Consult GI for ablation for possible EGD As per review of records patient had a negative gastric emptying study on January 2017 Continue IV Zofran for nausea. (2) Abdominal pain ICD Code: R10.9 - Unspecified abdominal pain Plan: Patient has right upper quadrant epigastric pain. CT abdomen and pelvis as described above shows enlarged fatty liver, enlarged prostate, complicated colonic diverticulosis, bilateral inguinal hernias containing only fat. Status stable 2.2 cm left renal cyst. Coronary artery calcifications. Degenerative changes and a scoliosis of the thoracolumbar spine. Consult GI for permission for EGD. Start Protonix and maalox as needed for heart burn Lipase normal, pink status ruled out. Check liver function test. (3) CKD (chronic kidney disease), stage III ICD Code: N18.3 - Chronic kidney disease, stage 3 (moderate) Plan: Upon review of records the patient has had a decreased GFR in the 50s since 2017. Suspect CKD stage III due to diabetic nephropathy. Continue to monitor BUN/creatinine, history I's and O's. Start on TONY inhibitor. (4) Abdominal distension ICD Code: R14.0 - Abdominal distension (gaseous) Plan: Patient with positive ascitic fluid wave on abdominal exam. Suspect the patient has ascites. Order abdominal ultrasound. (5) HTN (hypertension) ICD Code: I10 - Essential (primary) hypertension Plan: Patient has had persistently elevated with a systolic blood pressure in the 160s. I will start the patient on a low-dose TONY inhibitor. (6) Diabetes ICD Code: E11.9 - Type 2 diabetes mellitus without complications Status: Chronic Plan: Patient complains of numbness and paresthesias of lower extremities. I will start the patient on low-dose gabapentin. Assessment and Plan DVT prophylaxis: SCDs Discharge Planning Pending GI consultation. Stabilization of blood pressure and resolution of nausea along with improvement of abdominal pain. Problem Qualifiers (1) Intractable nausea and vomiting: Qualified Codes: R11.2 - Nausea with vomiting, unspecified (2) Abdominal pain: Qualified Codes: R10.11 - Right upper quadrant pain (3) HTN (hypertension): Qualified Codes: I10 - Essential (primary) hypertension (4) Diabetes: Qualified Codes: E11.42 - Type 2 diabetes mellitus with diabetic polyneuropathy Paulie Jessica MD Jul 11, 2017 11:53
--- NOTE | 2017-07-11 11:54 | RADRPT ---
EXAM DATE/TIME: 07/11/2017 10:36 [facility] COMPARISON: No previous studies available for comparison. INDICATIONS : RUQ pain. MEDICAL HISTORY : Hypertension. Hypercholesterolemia. Arthritis. Diabetes. Seizures. Peripheral Neuropathy. SURGICAL HISTORY : Appendectomy. Left knee surgery. ENCOUNTER: Initial ACUITY: 1 day PAIN SCORE: 4/10 LOCATION: Right upper quadrant MEASUREMENTS: LIVER: 22.0 cm length COMMON DUCT: Non-visualized RIGHT KIDNEY: 16.4 x 6.0 x 5.6 cm 14.5 cm length FINDINGS: LIVER: Increased echotexture without focal lesion or ductal dilatation. COMMON DUCT: Poorly visualized. GALLBLADDER: Contains no stones, demonstrates no wall thickening or pericholecystic fluid. PANCREAS: Poorly visualized due to overlying bowel gas RIGHT KIDNEY: No hydronephrosis, stone or mass. SPLEEN: No focal lesion. CONCLUSION: 1. Hepatic enlargement and fatty infiltration. 2. Splenomegaly. 3. Due to patient's body habitus and recent meal, multiple anatomic structures were poorly visualized including the common bile duct, pancreas and the main portal vein. Derek Nolasco MD on July 11, 2017 at 11:48 Board Certified Radiologist. This report was verified electronically.
[2017-07-11 12:18] LABS: ALBUMIN 3.8 GM/DL (3.4-5.0); AST (GOT) 24 U/L (15-37); BICARBONATE 24.2 MEQ/L (21.0-32.0); BLOOD UREA NITROGEN 15 MG/DL (7-18); CALCIUM 8.5 MG/DL (8.5-10.1); CHLORIDE 107 MEQ/L (98-107); CREATININE 1.33 MG/DL (0.60-1.30); DIRECT BILIRUBIN ADULT 0.2 MG/DL (0.0-0.2); GLOMERULAR FILTRATION RATE 56 ML/MIN (>89); GLUCOSE,RANDOM 162 MG/DL (74-106); SODIUM (NA) 141 MEQ/L (136-145)
[2017-07-11 12:20] LABS: ALT (GPT) 43 U/L (12-78)
[2017-07-11 12:22] LABS: ALKALINE PHOSPHATASE 46 U/L (45-117); TOTAL BILIRUBIN ADULT 0.8 MG/DL (0.2-1.0); TOTAL PROTEIN 7.1 GM/DL (6.4-8.2)
[2017-07-11] MEDS: PANTOPRAZOLE SOD 40 MG DELAYED RELEASE TAB PO SCH (12:57)
[2017-07-11] MEDS: LISINOPRIL 10 MG TAB PO SCH (12:59)
--- NOTE | 2017-07-11 13:09 | PD.CONS ---
HPI History of Present Illness This is a 56 year old male who was admitted to the hospital on 2017 with symptoms of nausea and vomiting uncontrolled for approximately 12 hours as well as epigastric and right upper quadrant pain. Patient denies diarrhea but states that he has chronic constipation and struggles when he is in the hospital. Patient states he was having chills but no known fever. Patient denies any dysphasia and does state generalized nausea and vomiting is now controlled after IV hydration. Patient notes ER visit a month or 2 ago for chronic pancreatitis. He also notes a admission to [facility] back in 2017 for some of the same symptoms and the chronic pancreatitis. After discussing patient's diet with him he eats a lot of processed foods which includes bologna, sausage, and hotdogs. He states his food cost is limited and attempts to cook what he eats and a slow cooker. Currently patient denies any history of EGD or colonoscopy but had plans for outpatient colonoscopy with [facility]. Currently patient denies any tobacco or alcohol intake. ([place]) [facility] Past Medical History Diabetes mellitus Hypertension Hyperlipidemia Rheumatoid arthritis Neuropathy Chronic pancreatitis Past Surgical History Left knee surgery Appendectomy ([place]) Coded Allergies: No Known Allergies (Verified Adverse Reaction, Unknown, 07/10/17) Uncoded Allergies: [facility] (Allergy, Unknown, 02/03/09) Medications Administered Medications Medications (Trade) Dose Ordered Sig/Juan José Route PRN Reason Start Time Stop Time Status Last Admin Dose Admin Sodium Chloride (NS Flush) 2 ml BID IV FLUSH 07/10/17 21:00 07/11/17 11:17 Ondansetron HCl (Zofran Inj) 4 mg Q6H PRN IVP NAUSEA OR VOMITING 07/10/17 17:30 07/11/17 03:07 Senna/Docusate Sodium (Sandra-Colace) 1 tab BID PO 07/10/17 21:00 07/11/17 11:17 Tamsulosin HCl (Flomax) 0.4 mg HS PO 07/10/17 21:00 07/10/17 23:51 Fenofibrate (Tricor) 48 mg DAILY PO 07/11/17 09:00 07/11/17 11:17 Sodium Chloride 1,000 ml @ 125 mls/hr Q8H IV 07/10/17 20:00 07/11/17 03:08 Morphine Sulfate (Morphine Inj) 2 mg Q3H PRN IV PUSH pain> 5 07/11/17 00:15 07/11/17 11:45 Family History Patient was adopted. Social History Negative for alcohol and tobacco. Daily marijuana use. ([place]) Review of Systems Constitutional: COMPLAINS OF: Chills Gastrointestinal: COMPLAINS OF: Abdominal pain, Nausea, Vomiting (Now controlled) ([place]) GI Exam Vitals I&O Vital Signs Date Time Temp Pulse Resp B/P (MAP) Pulse Ox O2 Delivery O2 Flow Rate FiO2 07/11/17 11:58 98.2 60 18 138/60 (86) 98 07/11/17 07:58 98.2 75 20 146/75 (98) 98 07/11/17 04:00 96.7 75 18 132/81 (98) 96 07/10/17 22:52 99.5 70 18 163/76 (105) 96 07/10/17 20:38 98.3 82 20 153/78 (103) 98 07/10/17 19:13 98.1 98 20 151/79 (103) 98 07/10/17 18:30 07/10/17 14:00 Room Air 07/10/17 13:47 162/78 (106) 07/10/17 13:42 62 178/87 (117) 99 I/O 07/10/17 07/10/17 07/10/17 07/11/17 07/11/17 07/11/17 07:00 15:00 23:00 07:00 15:00 23:00 Intake Total 1000 ml 600 ml Balance 1000 ml 600 ml Intake Oral 600 ml IV Total 1000 ml # Voids 5 Imaging Last Impressions Liver Ultrasound 07/11/17 0000 Signed Impressions: Service Date/Time: Tuesday, July 11, 2017 10:36 - CONCLUSION: 1. Hepatic enlargement and fatty infiltration. 2. Splenomegaly. 3. Due to patient's body habitus and recent meal, multiple anatomic structures were poorly visualized including the common bile duct, pancreas and the main portal vein. Derek Nolasco MD Abdomen/Pelvis CT 07/10/17 1422 Signed Impressions: Service Date/Time: June 15:16 - CONCLUSION: 1. Enlarged fatty liver. 2. Enlarged prostate. 3. Uncomplicated colonic diverticulosis. 4. Bilateral inguinal hernias containing only fat. 5. Stable 2.2 cm left renal cyst. 6. Coronary artery calcifications. 7. Degenerative changes and scoliosis of the thoraco-lumbar spine. Justice Bailey MD Chest X-Ray 07/10/17 1246 Signed Impressions: Service Date/Time: June 15:01 - CONCLUSION: 1. Lungs are clear. 2. Radiopaque density projecting over the upper thoracic trachea is presumably on or behind the patient. Derek Nolasco MD Laboratory Test 07/10/17 13:45 07/10/17 23:25 07/11/17 04:11 07/11/17 11:33 White Blood Count 9.1 TH/MM3 9.1 TH/MM3 Red Blood Count 5.83 MIL/MM3 4.99 MIL/MM3 Hemoglobin 17.5 GM/DL 15.0 GM/DL Hematocrit 50.3 % 42.6 % Mean Corpuscular Volume 86.2 FL 85.4 FL Mean Corpuscular Hemoglobin 29.9 PG 29.9 PG Mean Corpuscular Hemoglobin Concent 34.7 % 35.1 % Red Cell Distribution Width 13.5 % 13.5 % Platelet Count 187 TH/MM3 167 TH/MM3 Mean Platelet Volume 8.4 FL 8.5 FL Neutrophils (%) (Auto) 88.9 % 66.0 % Lymphocytes (%) (Auto) 7.5 % 23.4 % Monocytes (%) (Auto) 3.2 % 9.9 % Eosinophils (%) (Auto) 0.1 % 0.4 % Basophils (%) (Auto) 0.3 % 0.3 % Neutrophils # (Auto) 8.1 TH/MM3 6.0 TH/MM3 Lymphocytes # (Auto) 0.7 TH/MM3 2.1 TH/MM3 Monocytes # (Auto) 0.3 TH/MM3 0.9 TH/MM3 Eosinophils # (Auto) 0.0 TH/MM3 0.0 TH/MM3 Basophils # (Auto) 0.0 TH/MM3 0.0 TH/MM3 CBC Comment DIFF FINAL DIFF FINAL Differential Comment Prothrombin Time 10.6 SEC Prothromb Time International Ratio 1.0 RATIO Activated Partial Thromboplast Time 25.9 SEC Blood Urea Nitrogen 20 MG/DL 16 MG/DL 15 MG/DL Creatinine 1.60 MG/DL 1.19 MG/DL 1.33 MG/DL Random Glucose 230 MG/DL 85 MG/DL 162 MG/DL Calcium Level 9.5 MG/DL 8.4 MG/DL 8.5 MG/DL Sodium Level 139 MEQ/L 142 MEQ/L 141 MEQ/L Potassium Level 5.0 MEQ/L 3.5 MEQ/L 3.6 MEQ/L Chloride Level 103 MEQ/L 107 MEQ/L 107 MEQ/L Carbon Dioxide Level 21.9 MEQ/L 26.6 MEQ/L 24.2 MEQ/L Anion Gap 14 MEQ/L 8 MEQ/L 10 MEQ/L Estimat Glomerular Filtration Rate 45 ML/MIN 64 ML/MIN 56 ML/MIN Total Creatine Kinase 124 U/L 103 U/L 94 U/L Creatine Kinase MB 2.6 NG/ML Troponin I LESS THAN 0.02 NG/ML LESS THAN 0.02 NG/ML LESS THAN 0.02 NG/ML Lipase 216 U/L Total Protein 7.1 GM/DL Albumin 3.8 GM/DL Alkaline Phosphatase 46 U/L Aspartate Amino Transf (AST/SGOT) 24 U/L Alanine Aminotransferase (ALT/SGPT) 43 U/L Total Bilirubin 0.8 MG/DL Direct Bilirubin 0.2 MG/DL Physical Examination HEENT: Pupils round and reactive to light; normocephalic; atraumatic; no jaundice. Oral cavity clean NECK: Neck is supple, no JVD, no lymphadenopathy. CHEST: Chest is clear without rhonchi or wheezing CARDIAC: Regular rate and rhythm ABDOMEN: Abdomen taut, round, mild tenderness noted gastric region and right upper and mid quadrant .+ mild hepatosplenomegaly; bowel sounds are present in all four quadrants. EXTREMITIES: No clubbing, cyanosis, or edema. SKIN: Normal; no rash; no jaundice. Marshall complexion PHARMACY TECHNICIAN PROGRAM DIRECTOR: No focal deficits; alert and oriented times three. ([place]) Assessment and Plan Assessment: (1) Intractable nausea and vomiting ICD Codes: R11.2 - Nausea with vomiting, unspecified Status: Acute (2) Abdominal distension ICD Codes: R14.0 - Abdominal distension (gaseous) (3) Abdominal pain ICD Codes: R10.9 - Unspecified abdominal pain Plan Fatty liver disease, seen per liver ultrasound and CT scan. Discussed in depth patient's diet and the need for nonfat heart healthy foods. Encouraged no process meats or foods, consider baked chicken and fish, monitor white carb intake. Patient understands and is tired of symptoms requiring him to be in the hospital. Patient was already planning outpatient colonoscopy and outpatient follow-up visit but no appointment yet. Chronic pancreatitis, symptoms are probable acute on chronic, splenomegaly seen. Patient had uncontrolled nausea and vomiting for at least 12 hours before admission but is now feeling better after IV hydration. She is tolerating clear liquids. Afebrile Liver ultrasound was done on 07/11/2017 showed hepatic enlargement with fatty infiltrations. Splenomegaly. Poorly visualized common bile duct, pancreas or main portal vein Abdomen pelvic CT shows enlarged fatty liver enlarged prostate diverticulosis uncomplicated Plan PPI Anti-emetics as needed Clear liquid hydration for now, diet modification with low-fat heart healthy diet Restart IV hydration if nausea and vomiting returns Bowel regimen meds as needed Monitor labs Any further recommendations will be based on symptoms Set up to see GI as outpatient for colonoscopy after discharge Patient has been seen per myself and Dr. Fischer, this note was written on his behalf ([place]) Plan Patient was seen and examined, agree with above note, patient symptom improving significantly, patient will need an upper endoscopy and a colonoscopy this can be done as an outpatient (Freida Fischer MD) Problem Qualifiers (1) Intractable nausea and vomiting: Qualified Codes: R11.2 - Nausea with vomiting, unspecified (2) Abdominal pain: Qualified Codes: R10.11 - Right upper quadrant pain [place] Jul 11, 2017 13:09 Freida Fischer MD Jul 11, 2017 16:56
[2017-07-11] MEDS: NS + KCL 20 MEQ INJ 1,000 ML IV SCH ×2 (14:48→23:13)
--- NOTE | 2017-07-11 19:44 | EKG ---
Date Performed: 07/11/2017 Time Performed: 01:58:51 PTAGE: 56 years EKG: Sinus rhythm SEPTAL MYOCARDIAL INFARCTION ABNORMAL ECG Since the PREVIOUS TRACING , no significant change noted PREVIOUS TRACIN07/10/2017 23.34 DOCTOR: Dmitri Dickerson Interpretating Date/Time 07/11/2017 19:42:22
[2017-07-11] MEDS: TAMSULOSIN HCL 0.4 MG CAP PO SCH (20:49)
[2017-07-12 01:55] VITALS: PULSE 62
[2017-07-12 04:45] LABS: ALBUMIN 3.7 GM/DL (3.4-5.0); AST (GOT) 24 U/L (15-37); BICARBONATE 25.3 MEQ/L (21.0-32.0); BLOOD UREA NITROGEN 18 MG/DL (7-18); CALCIUM 8.3 MG/DL (8.5-10.1); CHLORIDE 107 MEQ/L (98-107); CREATININE 1.35 MG/DL (0.60-1.30); GLOMERULAR FILTRATION RATE 55 ML/MIN (>89); GLUCOSE,RANDOM 124 MG/DL (74-106); MAGNESIUM 1.3 MG/DL (1.5-2.5); SODIUM (NA) 141 MEQ/L (136-145)
[2017-07-12 04:47] LABS: ALT (GPT) 41 U/L (12-78); PHOSPHORUS 3.8 MG/DL (2.5-4.9)
[2017-07-12 04:49] LABS: ALKALINE PHOSPHATASE 44 U/L (45-117); TOTAL BILIRUBIN ADULT 0.8 MG/DL (0.2-1.0); TOTAL PROTEIN 6.8 GM/DL (6.4-8.2)
[2017-07-12 08:20] VITALS: PULSE 60
[2017-07-12 08:22] VITALS: BP 133/77; PULSE 63; RESP 18; TEMP 97.7; O2SAT 97
[2017-07-12] MEDS: SODIUM CHLORIDE 0.9% FLUSH 10 ML FLUSH IV FLUSH SCH (08:27)
--- NOTE | 2017-07-12 08:38 | HHI.PR ---
Subjective Remarks in no acute distress. abdominal pain has much improved. tolerating the diet and wants to go home today. Objective Vitals Vital Signs Date Time Temp Pulse Resp B/P (MAP) Pulse Ox O2 Delivery O2 Flow Rate FiO2 07/12/17 08:22 97.7 63 18 133/77 (95) 97 07/12/17 01:55 62 07/11/17 23:35 97.7 64 18 160/80 (106) 95 07/11/17 20:05 98.3 61 18 129/73 (91) 96 07/11/17 16:20 98.2 70 20 140/70 (93) 97 07/11/17 11:58 98.2 60 18 138/60 (86) 98 I/O 07/11/17 07/11/17 07/11/17 07/12/17 07/12/17 07/12/17 07:00 15:00 23:00 07:00 15:00 23:00 Intake Total 600 ml 290 ml Balance 600 ml 290 ml Intake Oral 600 ml 290 ml # Voids 5 Result Diagram: 07/11/17 0411 07/12/17 0357 Imaging Last Impressions Liver Ultrasound 07/11/17 0000 Signed Impressions: Service Date/Time: Tuesday, July 11, 2017 10:36 - CONCLUSION: 1. Hepatic enlargement and fatty infiltration. 2. Splenomegaly. 3. Due to patient's body habitus and recent meal, multiple anatomic structures were poorly visualized including the common bile duct, pancreas and the main portal vein. Derek Nolasco MD Abdomen/Pelvis CT 07/10/17 1422 Signed Impressions: Service Date/Time: June 15:16 - CONCLUSION: 1. Enlarged fatty liver. 2. Enlarged prostate. 3. Uncomplicated colonic diverticulosis. 4. Bilateral inguinal hernias containing only fat. 5. Stable 2.2 cm left renal cyst. 6. Coronary artery calcifications. 7. Degenerative changes and scoliosis of the thoraco-lumbar spine. Justice Bailey MD Chest X-Ray 07/10/17 1246 Signed Impressions: Service Date/Time: June 15:01 - CONCLUSION: 1. Lungs are clear. 2. Radiopaque density projecting over the upper thoracic trachea is presumably on or behind the patient. Derek Nolasco MD Objective Remarks GENERAL: This is a well-nourished, well-developed patient, in no apparent distress. CARDIOVASCULAR: Regular rate and regular rhythm without murmurs, gallops, or rubs. RESPIRATORY: Clear to auscultation. Breath sounds equal bilaterally. No wheezes , rales, or rhonchi. GASTROINTESTINAL: Abdomen soft, non-tender, nondistended. Normal, active bowel sounds MUSCULOSKELETAL: Extremities without clubbing, cyanosis, or edema. NEURO: Alert & Oriented x4 to person, place, time, situation. Moves all ext x4 Procedures none Medications and IVs Inpatient Medications Aspirin (Aspirin) 325 mg ONCE ONCE PO Last administered on 07/10/17at 15:17; Start 07/10/17 at 13:45; Stop 07/10/17 at 13:46; Status DC Bisacodyl (Dulcolax Supp) 10 mg DAILY PRN RECTAL SEVERE CONSITIPATION; Start at 17:30 Dextrose (D50w (Vial) Inj) 50 ml UNSCH PRN IV PUSH HYPOGLYCEMIA-SEE COMMENTS; Start 07/10/17 at 20:00 Diphenhydramine HCl (Benadryl Inj) 25 mg ONCE ONCE IM Last administered on 03/17at 18:24; Start 07/10/17 at 16:15; Stop 07/10/17 at 16:16; Status DC Fenofibrate (Tricor) 48 mg DAILY PO Last administered on 07/11/17at 11:17; Start 07/11/17 at 09:00 Glucagon (Glucagon Inj) 1 mg UNSCH PRN OTHER HYPOGLYCEMIA-SEE COMMENTS; Start 07/10/17 at 20:00 Insulin Aspart (NovoLOG SUPPLEMENTAL SCALE) 1 ACHS SLIDING SCALE SQ Last administered on 07/11/17at 18:19; Start 07/10/17 at 21:00 Lactulose (Lactulose Liq) 30 ml DAILY PRN PO SEVERE CONSITIPATION; Start at 17:30 Lisinopril (Prinivil) 10 mg DAILY PO Last administered on 07/11/17at 12:59; Start 07/11/17 at 13:00 Magnesium Hydroxide (Milk Of Magnesia Liq) 30 ml Q12H PRN PO Mild constipation ; Start 07/10/17 at 17:30 Metoclopramide HCl (Reglan Inj) 5 mg ONCE ONCE IV PUSH Last administered on 16:26; Start 07/10/17 at 16:15; Stop 07/10/17 at 16:16; Status DC Morphine Sulfate (Morphine Inj) 2 mg Q3H PRN IV PUSH pain> 5 Last administered on 07/11/17 23:13; Start 07/11/17 at 00:15 Naloxone HCl (Narcan Inj) 0.4 mg UNSCH PRN IV PUSH SEE LABEL COMMENTS; Start at 17:30 Ondansetron HCl (Zofran Inj) 4 mg Q6H PRN IVP NAUSEA OR VOMITING Last administered on 07/11/17 03:07; Start 07/10/17 at 17:30 Pantoprazole Sodium (Protonix) 40 mg DAILY PO Last administered on 07/11/17 12 :57; Start 07/11/17 at 12:00 Potassium Chloride/Sodium Chloride 1,000 ml @ 100 mls/hr Q10H IV Last administered on 07/11/17 23:13; Start 07/11/17 at 14:00 Senna/Docusate Sodium (Sandra-Colace) 1 tab BID PO Last administered on 20:49; Start 07/10/17 at 21:00 Sennosides (Senokot) 17.2 mg Q12H PRN PO Moderate constipation; Start 07/10/17 at 17:30 Sodium Chloride 1,000 ml @ 125 mls/hr Q8H IV Last administered on 07/11/17 12 :58; Start 07/10/17 at 20:00; Stop 07/11/17 at 14:03; Status DC Sodium Chloride (NS Flush) 2 ml BID IV FLUSH Last administered on 07/11/17at 20: 50; Start 07/10/17 at 21:00 Tamsulosin HCl (Flomax) 0.4 mg HS PO Last administered on 07/11/17 20:49; Start 07/10/17 at 21:00 A/P Problem List: (1) Intractable nausea and vomiting ICD Code: R11.2 - Nausea with vomiting, unspecified Status: Acute (2) Abdominal pain ICD Code: R10.9 - Unspecified abdominal pain (3) CKD (chronic kidney disease), stage III ICD Code: N18.3 - Chronic kidney disease, stage 3 (moderate) (4) Abdominal distension ICD Code: R14.0 - Abdominal distension (gaseous) (5) HTN (hypertension) ICD Code: I10 - Essential (primary) hypertension (6) Diabetes ICD Code: E11.9 - Type 2 diabetes mellitus without complications Status: Chronic Assessment and Plan A/P (1) Intractable nausea and vomiting and abdominal pain has much improved. GI consult appreciated; EGD and colonoscopy as outpatient. (2) CKD (chronic kidney disease), stage III Upon review of records the patient has had a decreased GFR in the 50s since 2017. Suspect CKD stage III due to diabetic nephropathy. Started on TONY inhibitor. f/u as outpatient. (3) HTN (hypertension) started on a low-dose TONY inhibitor. (4) Diabetes accu-check with SSI. Assessment and Plan DVT prophylaxis: SCDs Discharge Planning dc home today. f/u; pcp and GI. see med list. d/w the patient and RN. Problem Qualifiers (1) Intractable nausea and vomiting: Qualified Codes: R11.2 - Nausea with vomiting, unspecified (2) Abdominal pain: Qualified Codes: R10.11 - Right upper quadrant pain (3) HTN (hypertension): Qualified Codes: I10 - Essential (primary) hypertension (4) Diabetes: Qualified Codes: E11.42 - Type 2 diabetes mellitus with diabetic polyneuropathy Benito Flores MD Jul 12, 2017 08:38
[2017-07-12] MEDS ORDERED: PANT40TA3 PO (08:39)
[2017-07-12] MEDS ORDERED: LISI10TA3 PO (08:39)
--- NOTE | 2017-07-12 08:40 | HHI.DS ---
Discharge Summary Admission Date Jul 10, 2017 at 17:09 Discharge Date: Jul 12, 2017 Admitting Diagnosis Intractable nausea and vomiting (1) Intractable nausea and vomiting ICD Code: R11.2 - Nausea with vomiting, unspecified Diagnosis: Principal Status: Acute (2) Abdominal pain ICD Code: R10.9 - Unspecified abdominal pain Diagnosis: Principal (3) CKD (chronic kidney disease), stage III ICD Code: N18.3 - Chronic kidney disease, stage 3 (moderate) Diagnosis: Secondary (4) HTN (hypertension) ICD Code: I10 - Essential (primary) hypertension Diagnosis: Secondary (5) Diabetes ICD Code: E11.9 - Type 2 diabetes mellitus without complications Diagnosis: Secondary Status: Chronic Procedures none Brief History - From Admission 86-year-old male with a past medical history significant for diabetes mellitus, hypertension, hyperlipidemia, RA and neuropathy presents the emergency department for evaluation of abdominal pain. The patient states he has extreme epigastric abdominal pain that radiates to his chest. He states it started today and he has had multiple episodes of emesis. He denies any diarrhea. Endorses subjective fever/chills. He describes his chest pain is substernal and burning, nonradiating. He denies any associated shortness of breath or diaphoresis. No diarrhea. No increased fatigue/weakness. No lateralizing signs/symptoms. CBC/BMP: 07/11/17 0411 07/12/17 0357 Significant Findings Laboratory Tests Test 07/10/17 13:45 07/10/17 23:25 07/11/17 04:11 07/11/17 11:33 Hemoglobin 17.5 GM/DL (13.0-17.0) Neutrophils (%) (Auto) 88.9 % (16.0-70.0) Lymphocytes (%) (Auto) 7.5 % (9.0-44.0) Neutrophils # (Auto) 8.1 TH/MM3 (1.8-7.7) Lymphocytes # (Auto) 0.7 TH/MM3 (1.0-4.8) Blood Urea Nitrogen 20 MG/DL (7-18) Creatinine 1.60 MG/DL (0.60-1.30) 1.33 MG/DL (0.60-1.30) Random Glucose 230 MG/DL (74-106) 162 MG/DL (74-106) Estimat Glomerular Filtration Rate 45 ML/MIN (>89) 64 ML/MIN (>89) 56 ML/MIN (>89) Troponin I LESS THAN 0.02 NG/ML LESS THAN 0.02 NG/ML LESS THAN 0.02 NG/ML Monocytes (%) (Auto) 9.9 % (0.0-8.0) Calcium Level 8.4 MG/DL (8.5-10.1) Test 07/12/17 03:57 Creatinine 1.35 MG/DL (0.60-1.30) Random Glucose 124 MG/DL (74-106) Calcium Level 8.3 MG/DL (8.5-10.1) Magnesium Level 1.3 MG/DL (1.5-2.5) Alkaline Phosphatase 44 U/L (45-117) Estimat Glomerular Filtration Rate 55 ML/MIN (>89) Imaging Last Impressions Liver Ultrasound 07/11/17 0000 Signed Impressions: Service Date/Time: Tuesday, July 11, 2017 10:36 - CONCLUSION: 1. Hepatic enlargement and fatty infiltration. 2. Splenomegaly. 3. Due to patient's body habitus and recent meal, multiple anatomic structures were poorly visualized including the common bile duct, pancreas and the main portal vein. Derek Nolasco MD Abdomen/Pelvis CT 07/10/17 1422 Signed Impressions: Service Date/Time: June 15:16 - CONCLUSION: 1. Enlarged fatty liver. 2. Enlarged prostate. 3. Uncomplicated colonic diverticulosis. 4. Bilateral inguinal hernias containing only fat. 5. Stable 2.2 cm left renal cyst. 6. Coronary artery calcifications. 7. Degenerative changes and scoliosis of the thoraco-lumbar spine. Justice Bailey MD Chest X-Ray 07/10/17 1246 Signed Impressions: Service Date/Time: June 15:01 - CONCLUSION: 1. Lungs are clear. 2. Radiopaque density projecting over the upper thoracic trachea is presumably on or behind the patient. Derek Nolasco MD PE at Discharge GENERAL: This is a well-nourished, well-developed patient, in no apparent distress. CARDIOVASCULAR: Regular rate and regular rhythm without murmurs, gallops, or rubs. RESPIRATORY: Clear to auscultation. Breath sounds equal bilaterally. No wheezes , rales, or rhonchi. GASTROINTESTINAL: Abdomen soft, non-tender, nondistended. Normal, active bowel sounds MUSCULOSKELETAL: Extremities without clubbing, cyanosis, or edema. NEURO: Alert & Oriented x4 to person, place, time, situation. Moves all ext x4 Hospital Course (1) Intractable nausea and vomiting and abdominal pain has much improved. GI consult appreciated; EGD and colonoscopy as outpatient. (2) CKD (chronic kidney disease), stage III Upon review of records the patient has had a decreased GFR in the 50s since 2017. Suspect CKD stage III due to diabetic nephropathy. Started on TONY inhibitor. f/u as outpatient. (3) HTN (hypertension) started on a low-dose TONY inhibitor. (4) Diabetes accu-check with SSI. Pt Condition on Discharge: Fair Discharge Disposition: Discharge Home Discharge Time: <= 30 minutes Discharge Instructions DIET: Follow Instructions for: Heart Healthy Diet, Diabetic Diet Activities you can perform: Regular-No Restrictions Benito Flores MD Jul 12, 2017 08:40
[2017-07-12] MEDS: ONDANSETRON HCL 4 MG/2 ML VIAL IVP PRN (09:35)
[2017-07-12] MEDS: INSULIN ASPART SUPPLEMENTAL SCALE SQ SCH (09:35)
[2017-07-12] MEDS: DOCUSATE SODIUM 50 MG/SENNA 8.6 MG TAB PO SCH (09:35)
[2017-07-12] MEDS: LISINOPRIL 10 MG TAB PO SCH (09:35)
[2017-07-12] MEDS: FENOFIBRATE 48 MG TAB PO SCH (09:35)
[2017-07-12] MEDS: PANTOPRAZOLE SOD 40 MG DELAYED RELEASE TAB PO SCH (09:35)
--- NOTE | 2017-07-12 10:01 | HHI.GIFU ---
Subjective Remarks Pt sitting up in bed, eager to go home. tolerating diet. NO n/v today. (Carlee Anders) Objective Vitals I&O Vital Signs Date Time Temp Pulse Resp B/P (MAP) Pulse Ox O2 Delivery O2 Flow Rate FiO2 07/12/17 08:22 97.7 63 18 133/77 (95) 97 07/12/17 01:55 62 07/11/17 23:35 97.7 64 18 160/80 (106) 95 07/11/17 20:05 98.3 61 18 129/73 (91) 96 07/11/17 16:20 98.2 70 20 140/70 (93) 97 07/11/17 11:58 98.2 60 18 138/60 (86) 98 I/O 07/11/17 07/11/17 07/11/17 07/12/17 07/12/17 07/12/17 07:00 15:00 23:00 07:00 15:00 23:00 Intake Total 600 ml 290 ml 1000 ml Balance 600 ml 290 ml 1000 ml Intake Oral 600 ml 290 ml IV Total 1000 ml # Voids 5 Laboratory Laboratory Tests Test 07/11/17 11:33 07/12/17 03:57 Blood Urea Nitrogen 15 18 Creatinine 1.33 1.35 Random Glucose 162 124 Total Protein 7.1 6.8 Albumin 3.8 3.7 Calcium Level 8.5 8.3 Alkaline Phosphatase 46 44 Aspartate Amino Transf (AST/SGOT) 24 24 Alanine Aminotransferase (ALT/SGPT) 43 41 Total Bilirubin 0.8 0.8 Direct Bilirubin 0.2 Sodium Level 141 141 Potassium Level 3.6 4.1 Chloride Level 107 107 Carbon Dioxide Level 24.2 25.3 Anion Gap 10 9 Estimat Glomerular Filtration Rate 56 55 Phosphorus Level 3.8 Magnesium Level 1.3 Imaging Last Impressions Liver Ultrasound 07/11/17 0000 Signed Impressions: Service Date/Time: Tuesday, July 11, 2017 10:36 - CONCLUSION: 1. Hepatic enlargement and fatty infiltration. 2. Splenomegaly. 3. Due to patient's body habitus and recent meal, multiple anatomic structures were poorly visualized including the common bile duct, pancreas and the main portal vein. Derek Nolasco MD Abdomen/Pelvis CT 07/10/17 1422 Signed Impressions: Service Date/Time: June 15:16 - CONCLUSION: 1. Enlarged fatty liver. 2. Enlarged prostate. 3. Uncomplicated colonic diverticulosis. 4. Bilateral inguinal hernias containing only fat. 5. Stable 2.2 cm left renal cyst. 6. Coronary artery calcifications. 7. Degenerative changes and scoliosis of the thoraco-lumbar spine. Justice Bailey MD Chest X-Ray 07/10/17 1246 Signed Impressions: Service Date/Time: June 15:01 - CONCLUSION: 1. Lungs are clear. 2. Radiopaque density projecting over the upper thoracic trachea is presumably on or behind the patient. Derek Nolasco MD Physical Exam HEENT: PERRL; normocephalic; atraumatic; no jaundice. CHEST: CTA CARDIAC: RRR ABDOMEN: Soft, protuberant, nontender; no hepatosplenomegaly; bowel sounds are present in all four quadrants. EXTREMITIES: No clubbing, cyanosis, or edema. SKIN: Normal; no rash; no jaundice. [employer]: No focal deficits; alert and oriented times three. (Carlee Anders [facility]) Assessment and Plan Assessment: (1) Intractable nausea and vomiting ICD Codes: R11.2 - Nausea with vomiting, unspecified Status: Acute (2) Abdominal distension ICD Codes: R14.0 - Abdominal distension (gaseous) (3) Abdominal pain ICD Codes: R10.9 - Unspecified abdominal pain Plan Plan Fatty liver disease, seen per liver ultrasound and CT scan. Discussed in depth patient's diet and the need for nonfat heart healthy foods. Encouraged no process meats or foods, consider baked chicken and fish, monitor white carb intake. Patient understands and is tired of symptoms requiring him to be in the hospital. Patient was already planning outpatient colonoscopy and outpatient follow-up visit but no appointment yet. Chronic pancreatitis, symptoms are probable acute on chronic, splenomegaly seen. Patient had uncontrolled nausea and vomiting for at least 12 hours before admission but is now feeling better after IV hydration. She is tolerating clear liquids. Afebrile Liver ultrasound was done on 07/11/2017 showed hepatic enlargement with fatty infiltrations. Splenomegaly. Poorly visualized common bile duct, pancreas or main portal vein Abdomen pelvic CT shows enlarged fatty liver enlarged prostate diverticulosis uncomplicated 07/12/17 pt doing better, tolerating diet. Plan PPI Anti-emetics as needed mediterranean diet Set up to see GI as outpatient for EGD and colonoscopy after discharge ok to d/c from GI standpoint Patient has been seen per myself and Dr. Fischer, this note was written on his behalf (Carlee Anders) Plan Patient without nausea vomiting at this time, tolerating food, okay to discharge from GI stand, EGD colonoscopy as an outpatient, agree with above plan and note (Freida Fischer MD) Problem Qualifiers (1) Intractable nausea and vomiting: Qualified Codes: R11.2 - Nausea with vomiting, unspecified (2) Abdominal pain: Qualified Codes: R10.11 - Right upper quadrant pain Carlee nAders Jul 12, 2017 10:01 Freida Fischer MD Jul 12, 2017 11:56
--- NOTE | 2017-07-12 13:11 | EKG ---
Date Performed: 07/10/2017 Time Performed: 23:34:30 PTAGE: 56 years EKG: Normal Sinus rhythm Poor R-wave progression Cannot exclude old anteroseptal infarct versus lead placement Borderline lef t atrial abnormality ABNORMAL ECG Since PREVIOUS TRACING , no significant change noted PREVIOUS TRACIN07/10/2017 13.10 DOCTOR: Dmitri Dickerson Interpretating Date/Time 07/12/2017 13:11:25
--- NOTE | 2017-07-12 13:11 | EKG ---
Date Performed: 07/10/2017 Time Performed: 13:10:46 PTAGE: 56 years EKG: Sinus rhythm WITH SINUS ARRHYTHMIA SEPTAL MYOCARDIAL INFARCTION ABNORMAL ECG Compared to PREVIOUS TRACING , sinus arrhythmia has replaced sinus rhythm. PREVIOUS TRACIN02/28/20 17 16.50.20 DOCTOR: Dmitri Dickerson Interpretating Date/Time 07/12/2017 13:09:50
== END 2017-07-12 11:50 | disposition home or self-care (01) ==
LOC: NEPE 12:16 → NEDA 17:09 → NEPGCP 18:51
PROVIDERS: ADMIT Internal Medicine; ATTEND Internal Medicine
DX: R11.2 Nausea with vomiting, unspecified (principal); I12.9 Hypertensive chronic kidney disease with stage 1 through stage 4 chronic kidney disease, or unspecified chronic kidney disease; N18.3 Chronic kidney disease, stage 3 (moderate); N17.9 Acute kidney failure, unspecified; E11.22 Type 2 diabetes mellitus with diabetic chronic kidney disease; E78.5 Hyperlipidemia, unspecified; K86.1 Other chronic pancreatitis; K59.09 Other constipation; E78.00 Pure hypercholesterolemia, unspecified; K40.20 Bilateral inguinal hernia, without obstruction or gangrene, not specified as recurrent; I25.10 Atherosclerotic heart disease of native coronary artery without angina pectoris; F12.90 Cannabis use, unspecified, uncomplicated; K57.30 Diverticulosis of large intestine without perforation or abscess without bleeding; K76.0 Fatty (change of) liver, not elsewhere classified; N28.1 Cyst of kidney, acquired; N40.0 Benign prostatic hyperplasia without lower urinary tract symptoms; Z72.0 Tobacco use; M41.9 Scoliosis, unspecified; Z87.442 Personal history of urinary calculi
CPT/HCPCS: 71046; 74177; 76705; 80048; 80053; 82248; 82550; 82552; 82948; 83690; 83735; 84100; 84484; 85025; 85610; 85730; 93005; 96361; 96365; 96366; 96372; 96375; 96376; 99285; G0378; J1200; J1815; J2270; J2405; J2765; J3480; J7030; Q9967